=== PATIENT | male | born 1940 | race Caucasian/White ===

== ENCOUNTER 2016-11-08 06:37 | Inpatient (IN) | payer MEDICARE, BC ==
[2016-11-08] MEDS ORDERED: IPRATROPIUM-ALBUTEROL 3 ML NEB INHALATION STA (06:46)
[2016-11-08] MEDS ORDERED: ACETAMINOPHEN TAB 500 MG TAB PO STA (06:54)
[2016-11-08] MEDS ORDERED: SODIUM CHLORIDE 0.9% 1,000 ML IV STA ×2 (06:54→09:02)
--- NOTE | 2016-11-08 06:58 | ED ---
General Adult HPI - General Source: patient, EMS, RN notes reviewed Mode of arrival: EMS Limitations: no limitations <Mayank Burrows - Last Filed: 11/08/16 07:27> <Theodore Johnson - Last Filed: 11/08/16 09:44> - General Chief complaint: Shortness of Breath Stated complaint: PEYTON Time Seen by Provider: 11/08/16 06:51 - History of Present Illness Initial comments: Patient is a pleasant 76-year-old male presenting to the emergency department with difficulty in breathing. Onset of symptoms was a day or 2 ago. Patient is dyspneic and only speaks in one word answers. Patient states he does have a history of similar symptoms previously associated with COPD. Patient is unclear if he has had fever. Patient does admit to having cough. (Mayank Burrows) - Related Data Allergies Allergy/AdvReac Type Severity Reaction Status Date / Time No Known Allergies Allergy Verified 11/08/16 07:40 Review of Systems ROS Other: All systems not noted in ROS Statement are negative. Constitutional: Reports: fever Eyes: Denies: eye pain ENT: Denies: ear pain Respiratory: Reports: cough, dyspnea Cardiovascular: Denies: chest pain Endocrine: Reports: fatigue Gastrointestinal: Denies: abdominal pain Genitourinary: Denies: dysuria Musculoskeletal: Denies: back pain Skin: Denies: rash Neurological: Denies: weakness <Mayank Burrows - Last Filed: 11/08/16 07:27> ROS Other: All systems not noted in ROS Statement are negative. <Theodore Johnson - Last Filed: 11/08/16 09:44> ROS Statement: Those systems with pertinent positive or pertinent negative responses have been documented in the HPI. Past Medical History Past Medical History: COPD, Hypertension History of Any Multi-Drug Resistant Organisms: None Reported Additional Past Surgical History / Comment(s): abdominal sx Past Psychological History: No Psychological Hx Reported Smoking Status: Former smoker Past Alcohol Use History: None Reported Past Drug Use History: None Reported <Mayank Burrows - Last Filed: 11/08/16 07:27> General Exam Limitations: no limitations General appearance: alert Head exam: Present: atraumatic Eye exam: Present: normal appearance, PERRL ENT exam: Present: mucous membranes dry Neck exam: Present: normal inspection Respiratory exam: Present: respiratory distress, wheezes, decreased breath sounds Cardiovascular Exam: Present: tachycardia GI/Abdominal exam: Present: soft. Absent: tenderness Extremities exam: Present: normal inspection. Absent: pedal edema, calf tenderness Neurological exam: Present: alert Psychiatric exam: Present: normal affect, normal mood Skin exam: Present: normal color <Mayank Burrows - Last Filed: 11/08/16 07:27> Course <Mayank Burrows - Last Filed: 11/08/16 07:27> <Theodore Johnson - Last Filed: 11/08/16 09:44> Vital Signs 11/08/16 11/08/16 11/08/16 06:38 06:45 06:49 Temperature 100.7 F H Pulse Rate 118 H 114 H Respiratory 26 H 35 H Rate Blood Pressure 124/90 O2 Sat by Pulse 91 L Oximetry 11/08/16 11/08/16 11/08/16 06:52 07:06 08:03 Temperature Pulse Rate 122 H 120 H 119 H Respiratory 20 20 Rate Blood Pressure 153/65 116/55 O2 Sat by Pulse 94 L 90 L Oximetry 11/08/16 11/08/16 11/08/16 08:24 08:36 09:03 Temperature 98.6 F 97.9 F Pulse Rate 115 H 110 H 107 H Respiratory 20 20 24 Rate Blood Pressure 82/44 80/43 90/54 O2 Sat by Pulse 91 L 91 L 93 L Oximetry 11/08/16 09:15 Temperature Pulse Rate 100 Respiratory 20 Rate Blood Pressure 94/53 O2 Sat by Pulse 93 L Oximetry - Reevaluation(s) Reevaluation #1: 11/08/16 07:[address] Johnson (Mayank Burrows) Reevaluation #2: 11/08/16 09:40 Reevaluation patient reveals she is feeling improved however his blood pressure did decline. He did require fluid resuscitation. (Theodore Johnson) EKG Findings - EKG Comments: EKG Findings:: Sinus tachycardia 121. NE 12. QRS 138. QT 364. QTC 516. Right axis. Nonspecific intraventricular block. ST depression in V6. <Mayank Burrows - Last Filed: 11/08/16 07:27> Medical Decision Making - Lab Data Result diagrams: 11/08/16 06:40 <Mayank Burrows - Last Filed: 11/08/16 07:27> - Lab Data Result diagrams: 11/08/16 06:40 11/08/16 06:40 - Radiology Data Radiology results: report reviewed (I did review the imaging and reports are is evidence of pulmonary venous congestion also left lower lobe atelectasis versus pneumonia.), image reviewed <Theodore Johnson - Last Filed: 11/08/16 09:44> - Medical Decision Making I did discuss case with patient and his . Also with Dr. Haider. Patient will be admitted consultation by Dr. Cat and cardiology. The patient does have an elevated lactic acid are this is on the basis of viral depletion as well as renal insufficiency. Aggressive fluid administration is given with caution. (Theodore Johnson) - Lab Data Lab Results 11/08/16 11/08/16 11/08/16 Range/Units 06:40 06:40 06:40 WBC 7.9 (3.8-10.6) k/uL RBC 3.64 L (4.30-5.90) m/uL Hgb 10.4 L (13.0-17.5) gm/dL Hct 32.1 L (39.0-53.0) % MCV 88.2 D (80.0-100.0) fL MCH 28.7 (25.0-35.0) pg MCHC 32.6 (31.0-37.0) g/dL RDW 16.7 H (11.5-15.5) % Plt Count 243 (150-450) k/uL Neutrophils % (Manual) 74 % Lymphocytes % (Manual) 18 % Monocytes % (Manual) 6 % Eosinophils % (Manual) 2 % Neutrophils # (Manual) 5.85 (1.3-7.7) k/uL Lymphocytes # (Manual) 1.42 (1.0-4.8) k/uL Monocytes # (Manual) 0.47 (0-1.0) k/uL Eosinophils # (Manual) 0.16 (0-0.7) k/uL Nucleated RBCs 0 (0-0) /100 WBC Manual Slide Review Performed Hypochromasia Moderate Poikilocytosis Slight Anisocytosis Slight PT (9.0-12.0) sec INR (<1.2) APTT (22.0-30.0) sec Sodium 140 (137-145) mmol/L Potassium 4.4 (3.5-5.1) mmol/L Chloride 102 (98-107) mmol/L Carbon Dioxide 27 (22-30) mmol/L Anion Gap 11 mmol/L BUN 34 H (9-20) mg/dL Creatinine 2.38 H (0.66-1.25) mg/dL Est GFR (MDRD) Af Amer 33 (>60 ml/min/1.73 sqM) Est GFR (MDRD) Non-Af 27 (>60 ml/min/1.73 sqM) Glucose 116 H (74-99) mg/dL Plasma Lactic Acid Sriram (0.7-2.0) mmol/L Calcium 9.4 (8.4-10.2) mg/dL Total Bilirubin 0.6 (0.2-1.3) mg/dL AST 17 (17-59) U/L ALT 27 (21-72) U/L Alkaline Phosphatase 77 (38-126) U/L Total Creatine Kinase 26 L (55-170) U/L CK-MB (CK-2) 0.4 (0.0-2.4) ng/mL CK-MB (CK-2) Rel Index 1.5 Troponin I 0.045 H* (0.000-0.034) ng/mL NT-Pro-B Natriuret Pep pg/mL Total Protein 6.4 (6.3-8.2) g/dL Albumin 3.3 L (3.5-5.0) g/dL 11/08/16 11/08/16 11/08/16 Range/Units 06:40 06:40 06:40 WBC (3.8-10.6) k/uL RBC (4.30-5.90) m/uL Hgb (13.0-17.5) gm/dL Hct (39.0-53.0) % MCV (80.0-100.0) fL MCH (25.0-35.0) pg MCHC (31.0-37.0) g/dL RDW (11.5-15.5) % Plt Count (150-450) k/uL Neutrophils % (Manual) % Lymphocytes % (Manual) % Monocytes % (Manual) % Eosinophils % (Manual) % Neutrophils # (Manual) (1.3-7.7) k/uL Lymphocytes # (Manual) (1.0-4.8) k/uL Monocytes # (Manual) (0-1.0) k/uL Eosinophils # (Manual) (0-0.7) k/uL Nucleated RBCs (0-0) /100 WBC Manual Slide Review Hypochromasia Poikilocytosis Anisocytosis PT 10.6 (9.0-12.0) sec INR 1.0 (<1.2) APTT 25.4 (22.0-30.0) sec Sodium (137-145) mmol/L Potassium (3.5-5.1) mmol/L Chloride (98-107) mmol/L Carbon Dioxide (22-30) mmol/L Anion Gap mmol/L BUN (9-20) mg/dL Creatinine (0.66-1.25) mg/dL Est GFR (MDRD) Af Amer (>60 ml/min/1.73 sqM) Est GFR (MDRD) Non-Af (>60 ml/min/1.73 sqM) Glucose (74-99) mg/dL Plasma Lactic Acid Sriram 2.3 H* (0.7-2.0) mmol/L Calcium (8.4-10.2) mg/dL Total Bilirubin (0.2-1.3) mg/dL AST (17-59) U/L ALT (21-72) U/L Alkaline Phosphatase (38-126) U/L Total Creatine Kinase (55-170) U/L CK-MB (CK-2) (0.0-2.4) ng/mL CK-MB (CK-2) Rel Index Troponin I (0.000-0.034) ng/mL NT-Pro-B Natriuret Pep 3480 pg/mL Total Protein (6.3-8.2) g/dL Albumin (3.5-5.0) g/dL Critical Care Time <Mayank Burrows - Last Filed: 11/08/16 07:27> Critical Care Time: Yes <Theodore Johnson - Last Filed: 11/08/16 09:44> Critical Care Time: 31 minutes of critical care time which includes initial signoff from Dr. Burrows. Reevaluation patient several occasions. Discussion with the patient family regarding findings review the x-rays and labs. Admission orders and documentation of the above. (Theodore Johnson) Disposition <Mayank Burrows - Last Filed: 11/08/16 07:27> <Theodore Johnson - Last Filed: 11/08/16 09:44> Clinical Impression: Left lower lobe pneumonia, Congestive heart failure, COPD with exacerbation, Renal failure syndrome, Hypotensive episode Disposition: ADMITTED IP TO THIS [facility] Condition: Serious Referrals: Jayme Haider MD [Primary Care Provider] - 1-2 days
[2016-11-08 07:17] LABS: Calcium 9.4 mg/dL (8.4-10.2); Potassium 4.4 mmol/L (3.5-5.1); Total Bilirubin 0.6 mg/dL (0.2-1.3); Total Protein 6.4 g/dL (6.3-8.2)
[2016-11-08 07:21] LABS: Partial Thromboplastin Time 25.4 sec (22.0-30.0); Prothrombin Time 10.6 sec (9.0-12.0)
[2016-11-08 07:30] LABS: Anisocytosis Slight; Aty Lym Flag Slight; CH 27.5; CHCM 31.3; HCT 32.1 % (39.0-53.0); HDW 3.56; HGB 10.4 gm/dL (13.0-17.5); Hypochromasia Moderate; MCH 28.7 pg (25.0-35.0); MCHC 32.6 g/dL (31.0-37.0); Mean Platelet Volume 7.6; Poikilocytosis Slight; RBC 3.64 m/uL (4.30-5.90); RDW 16.7 % (11.5-15.5); WBC 7.9 k/uL (3.8-10.6); WBC (Perox) 7.76
[2016-11-08 07:32] LABS: MCV 88.2 fL (80.0-100.0)
[2016-11-08 07:41] LABS: Add Differential Manual Differential
[2016-11-08 07:42] LABS: Creatine Kinase MB 0.4 ng/mL (0.0-2.4)
[2016-11-08 07:44] LABS: Manual Review Performed; Nucleated Red Blood Cells 0 /100 WBC (0-0); Total Cells Counted 100
[2016-11-08 07:46] LABS: Troponin I 0.045 ng/mL (0.000-0.034)
--- NOTE | 2016-11-08 07:59 | XR ---
EXAMINATION TYPE: XR chest 1V portable DATE OF EXAM: 11/08/2016 COMPARISON: NONE HISTORY: Shortness of breath TECHNIQUE: Single frontal view of the chest is obtained. FINDINGS: Patient is rotated. Heart may be enlarged. Interstitium is increased. No pneumothorax or s izable pleural effusion. There are overlying cardiac leads. Difficult to exclude retrocardiac density . IMPRESSION: Findings likely represent pulmonary venous hypertension and interstitial edema. There ma y be left lower lobe atelectasis versus edema or pneumonia, effusion is not excluded. Follow-up recom mended.
[2016-11-08] MEDS ORDERED: NITROGLYCERIN OINT 1 INCH/GM PACKET TOPICAL STA (08:07)
[2016-11-08] MEDS ORDERED: FUROSEMIDE 10 MG/ML 4 ML VIAL IV STA (08:07)
[2016-11-08] MEDS ORDERED: PIPERACILLIN-TAZOBACTAM 3.375 GM in DEXTROSE/WATER 1 50ML.BAG IVPB STA (08:07)
[2016-11-08] MEDS ORDERED: LEVOFLOXACIN 750MG-D5W PMX 750 MG in DEXTROSE/WATER 1 150ML.BAG IVPB STA (09:44)
[2016-11-08] MEDS ORDERED: PNEUMONIA PROTOCOL UTILIZED 1 EACH MISC PO PRN (09:44)
[2016-11-08 13:42] VITALS: BMI 21.7
--- NOTE | 2016-11-08 14:17 | P.HPIM ---
History of Present Illness H&P Date: 11/08/16 Chief Complaint: Shortness of breath This is a 76 year old male patient who presented to the emergency room on November 08, 2016 with a chief complaint of shortness of breath for two days. The patient also complained of a cough. The patient is hard of hearing. The is at the bedside during evaluation and was very helpful in describing the patients condition over the past few days and also his medical history. In the emergency room, a chest xray revealed pulmonary venous congestion and left lower lobe atelectasis versus pneumonia. An EKG was performed which showed sinus tachycardia with a rate in the 120s. Initially the patient presented hypertensive, but the patient's blood pressure did decrease and the patient received 2L in fluid boluses. He also received 40mg IVP lasix x1. His lactic acid was elevated at 2.3 He was febrile in the ER with a temperature of 100.7. Blood cultures were drawn. His WBC was normal at 7.9. 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 He lives with his spouse and uses a cane to ambulate. He also wears oxygen 2L NC around the clock at home. The patient was admitted to the hospital under the care of Dr. Haider. Consults were placed to Dr. Cat and Dr. Burns. Review of Systems GENERAL: Positive for fever. Patient denies chills, weight gain, or weight loss. RESPIRATORY: Positive for dyspnea and cough. Denies sputum production or hemoptysis. CARDIOVASCULAR: Denies chest pain, pressure, palpitations, claudication, or arrhythmias. GI: Denies abdominal pain, diarrhea, incontinence, heartburn, nausea, constipation, or blood in the stool. : Denies urinary frequency, burning, dysuria, or cloudy urine. Denies blood in the urine. MUSCULOSKELETAL: Denies pain or tenderness. Denies cramps, swelling, or decreased range of motion. Past Medical History Past Medical History: Chest Pain / Angina, COPD, CVA/TIA, Dementia, Hyperlipidemia, Hypertension, Osteoarthritis (OA), Pneumonia, Prostate Disorder , Renal Disease, Skin Disorder, Syncope Additional Past Medical History / Comment(s): Benign L lung mass removed surgically, psoriasis-takes methotrexate, early dementia, 2014 "brain bleed" with L sided weakness since resolved-was intubated and had a feeding tube, possible seizure in 2016, kidney "problems" but labwork is improving, back pain on occasion, past fractures L wrist and R hand fingers. History of Any Multi-Drug Resistant Organisms: None Reported Past Surgical History: Heart Catheterization, Hernia Repair, Tonsillectomy Additional Past Surgical History / Comment(s): Drainage tube for brain bleed- removed, L bening lung mass removed, R inguinal hernia removed, colonoscopy, cyst removed from tailbone. Past Anesthesia/Blood Transfusion Reactions: No Reported Reaction Smoking Status: Former smoker - Past Family History Father Family Medical History: Cancer, Coronary Artery Disease (CAD) Additional Family Medical History / Comment(s): Father of cancer per his autopsy-unknown primary. He had CAD-CABG and was a drinker with liver dx. Mother Additional Family Medical History / Comment(s): Mother of a brain aneurysm at the age of 67 or 68yrs. Medications and Allergies Home Medications Medication Instructions Recorded Confirmed Type Acetaminophen-Codeine 300-30mg 1 - 2 tab PO Q6H PRN 11/08/16 11/08/16 History [Tylenol #3] Aspirin EC [Ecotrin Low Dose] 81 mg PO HS 11/08/16 11/08/16 History Folic Acid 1 mg PO DAILY 11/08/16 11/08/16 History Furosemide [Lasix] 40 mg PO DAILY 11/08/16 11/08/16 History Methotrexate Sodium [Methotrexate] 7.5 mg PO SA 11/08/16 11/08/16 History Tamsulosin [Flomax] 0.4 mg PO DAILY 11/08/16 11/08/16 History amLODIPine [Norvasc] 10 mg PO DAILY 11/08/16 11/08/16 History Allergies Allergy/AdvReac Type Severity Reaction Status Date / Time No Known Allergies Allergy Verified 11/08/16 07:40 Physical Exam Vitals: Vital Signs Temp Pulse Resp BP Pulse Ox 11/08/16 10:15 98.7 F 97 18 95/51 93 L 11/08/16 09:59 97 18 97/54 95 11/08/16 09:45 97.8 F 98 20 103/54 94 L 11/08/16 09:15 100 20 94/53 93 L 11/08/16 09:03 97.9 F 107 H 24 90/54 93 L 11/08/16 08:36 110 H 20 80/43 91 L 11/08/16 08:24 98.6 F 115 H 20 82/44 91 L 11/08/16 08:03 119 H 20 116/55 90 L 11/08/16 07:06 120 H 11/08/16 06:52 122 H 20 153/65 94 L 11/08/16 06:49 114 H 11/08/16 06:45 35 H 11/08/16 06:38 100.7 F H 118 H 26 H 124/90 91 L Intake and Output 11/07/16 11/08/16 11/08/16 22:59 06:59 14:59 Intake Total 2000 Output Total 250 Balance 1750 Intake: Amount of Fluid Infused ( 2000 ml) Output: Urine 250 Other: # Voids 0 Weight 72.575 kg GENERAL: Alert and oriented. Appears in no acute distress. Pleasant. RESPIRATORY: Lungs diminished bilaterally. No use of accessory muscles. Patient maintaining oxygen saturation greater than 92% on 4L NC. CARDIOVASCULAR: Rate and rhythm regular. S1 and S2 noted. No JVD noted. EXTREMITIES: +1 lower extremity edema. Palpable pedal pulses +2. ABDOMEN: No distention noted. Abdomen soft and round. Normal active bowel sounds auscultated 4 quadrants. No pain or tenderness noted upon palpation. Results CBC & Chem 7: 11/09/16 05:41 11/09/16 05:41 Labs: Abnormal Lab Results - Last 24 Hours (Table) 11/08/16 11/08/16 11/08/16 Range/Units 06:40 06:40 06:40 RBC 3.64 L (4.30-5.90) m/uL Hgb 10.4 L (13.0-17.5) gm/dL Hct 32.1 L (39.0-53.0) % RDW 16.7 H (11.5-15.5) % BUN 34 H (9-20) mg/dL Creatinine 2.38 H (0.66-1.25) mg/dL Glucose 116 H (74-99) mg/dL Plasma Lactic Acid Sriram (0.7-2.0) mmol/L Total Creatine Kinase 26 L (55-170) U/L Troponin I 0.045 H* (0.000-0.034) ng/mL Albumin 3.3 L (3.5-5.0) g/dL 11/08/16 11/08/16 Range/Units 06:40 10:46 RBC (4.30-5.90) m/uL Hgb (13.0-17.5) gm/dL Hct (39.0-53.0) % RDW (11.5-15.5) % BUN (9-20) mg/dL Creatinine (0.66-1.25) mg/dL Glucose (74-99) mg/dL Plasma Lactic Acid Sriram 2.3 H* 2.8 H* (0.7-2.0) mmol/L Total Creatine Kinase (55-170) U/L Troponin I (0.000-0.034) ng/mL Albumin (3.5-5.0) g/dL Thrombosis Risk Factor Assmnt - Choose All That Apply Any of the Below Risk Factors Present?: Yes Each Factor Represents 1 point: Abnormal pulmonary function (COPD), Heart failure (<1month), Serious lung disease incl. pneumonia (< 1month) Each Risk Factor Represents 2 Points: Age 61-74 years Other congenital or acquired thrombophilia - If yes, enter type in comment: No Thrombosis Risk Factor Assessment Total Risk Factor Score: 5 Thrombosis Risk Factor Assessment Level: High Risk Assessment and Plan Plan: ASSESSMENT: -Pneumonia, present on admission, CXR reveals left lower lobe atelectasis versus pneumonia -Acute exacerbation of COPD, present on admission -Dyspnea, present on admission, related to pneumonia and CHF exacerbation -Exacerbation of congestive heart failure, present on admission, type unknown -Febrile, present on admission, resolved -Hypertensive urgency, present on admission, resolved -Hypotension, improving -Elevated lactic acid, present on admission, likely due to acute kidney injury and vascular depletion -Chronic hypoxic respiratory failure: supplemental oxygen dependent - patient wears 2L NC at home -Tachycardia, present on admission, resolving -Acute Kidney Injury with elevated creatinine of 2.38, present on admission, baseline unknown -Tachycardia, febrile, hypotension, present on admission, meets SIRS criteria- suspect early sepsis. Etiology unknown. blood cultures pending. PLAN: -Continue zosyn and levaquin -Awaiting blood culture results -Resume home meds -Continue lasix 40mg BID -GI prophylaxis: Protonix 40 mg IV daily -DVT prophylaxis: Heparin 5000 units subcu every 8 hours -Pulmonary on consult: Appreciate recommendations and input -Cardiology on consult: Appreciate recommendations and input -Await results of echo -Continue IV steroids: 60mg Q6 hours -Continue breathing treatments -Monitor labs -Monitor vital signs and address as appropriate The above impression and plan of care have been discussed and directed by signing physician. Anay Lara, nurse practitioner, acting as scribe for signing physician.
--- NOTE | 2016-11-08 16:47 | CONS ---
CONSULTATION CHIEF COMPLAINT: Shortness of breath. This is a 76-year-old gentleman with history of COPD and hypertension who comes in with difficulty in breathing and also has some cough. He is a very poor historian, and I am not quite able to understand the exact symptomatology that brought him in. ALLERGIES: NO KNOWN DRUG ALLERGIES. PAST MEDICAL HISTORY: Significant for COPD and hypertension. MEDICATIONS: Medications at home include: 1. Norvasc 10 daily. 2. Flomax. 3. Methotrexate. 4. Lasix. 5. Folic acid. 6. Aspirin. FAMILY HISTORY: Negative for premature coronary artery disease. SOCIAL HISTORY: Negative for current smoking, ETOH abuse or drug abuse. REVIEW OF SYSTEMS: HEENT is unremarkable. CARDIAC: As described above. RESPIRATORY: As described above. GI: Negative. GENITOURINARY: Negative. ALLERGY/IMMUNOLOGY: Negative. SKIN: Negative. MUSCULOSKELETAL: Significant for arthritis. PSYCHOSOCIAL: Negative. ENDOCRINE: Negative. DERMATOLOGICAL: Negative. CONSTITUTIONAL: Significant for not feeling well. The rest of the system review is not relevant. PHYSICAL EXAM: Comfortable at rest. Afebrile. Heart rate is 97 beats per minute, blood pressure 90/50, respiratory rate is 18. Chest exam reveals diminished air entry at the bases. Heart exam reveals first and second heart sounds. He has a systolic murmur at the left lower sternal border. Abdomen is soft. Examination of extremities reveals bilateral 1+ pitting edema. LABS: Hemoglobin of 10.4. Lactic acid is elevated. BNP is 3480. Troponin is elevated at 0.045. EKG shows sinus rhythm with left bundle branch block. ASSESSMENT: 1. Acute onset congestive heart failure. 2. Mild troponin elevation of unclear clinical significance. 3. Chronic renal failure. 4. History of chronic obstructive pulmonary disease. PLAN: I am going to obtain a 2D echo to document his LV function. His troponin elevation is probably related to underlying renal failure. I will obtain one more set of troponin. Continue the Lasix that he is on. The patient is currently being treated with multiple antibiotics, probably for possible pneumonia. MMODL / IJN: [id number] /
[2016-11-08] MEDS: SODIUM CHLORIDE 0.9% 1,000 ML IV SCH ×2 (18:45→18:50)
[2016-11-08] MEDS: methylPREDNISolone SOD SUCCI 125 MG/2 ML VIAL IV SCH ×3 (18:45→23:05)
[2016-11-08] MEDS: HEPARIN SODIUM,PORCINE 5,000 UNIT/ML 1 ML VIAL SQ SCH ×2 (18:49→23:05)
[2016-11-08] MEDS: IPRATROPIUM-ALBUTEROL 3 ML NEB INHALATION PRN (19:18)
[2016-11-08] MEDS: ASPIRIN 81 MG PO SCH (21:27)
[2016-11-08] MEDS: PIPERACILLIN-TAZOBACTAM 3.375 GM in DEXTROSE/WATER 1 50ML.BAG IVPB SCH ×2 (21:27→23:04)
[2016-11-08 21:59] LABS: Glucose,Whole Blood 141 mg/dL (75-99)
[2016-11-09 01:39] LABS: Glucose,Whole Blood 139 mg/dL (75-99)
[2016-11-09] MEDS: methylPREDNISolone SOD SUCCI 125 MG/2 ML VIAL IV SCH ×4 (06:03→23:47)
[2016-11-09] MEDS: SODIUM CHLORIDE 0.9% 1,000 ML IV SCH ×2 (06:04→17:29)
[2016-11-09 06:09] LABS: Anisocytosis Slight; Basophils % (A) 1 %; CH 28.5; CHCM 32.4; Eosinophils % (A) 0 %; HCT 32.3 % (39.0-53.0); HDW 3.54; HGB 10.3 gm/dL (13.0-17.5); Hypochromasia Slight; Luc # (Auto) 0.14; Luc % (Auto) 3; Lymphocytes # (A) 0.7 k/uL (1.0-4.8); Lymphocytes % (A) 15 %; MCH 28.1 pg (25.0-35.0); MCHC 31.8 g/dL (31.0-37.0); MCV 88.2 fL (80.0-100.0); Mean Platelet Volume 7.8; Monocytes # (A) 0.1 k/uL (0-1.0); Monocytes % (A) 2 %; Neutrophils # (A) 3.4 k/uL (1.3-7.7); Neutrophils % (A) 79 %; Poikilocytosis Slight; RBC 3.66 m/uL (4.30-5.90); RDW 17.6 % (11.5-15.5); WBC 4.3 k/uL (3.8-10.6); WBC (Perox) 4.74
[2016-11-09 06:10] LABS: Calcium 9.4 mg/dL (8.4-10.2); Potassium 4.2 mmol/L (3.5-5.1); Total Bilirubin 0.5 mg/dL (0.2-1.3); Total Protein 5.8 g/dL (6.3-8.2)
[2016-11-09] MEDS: INSULIN LISPRO (humaLOG) 300 UNIT/3 ML VIAL SQ SCH ×4 (06:18→22:05)
[2016-11-09 06:33] LABS: Glucose,Whole Blood 127 mg/dL (75-99)
[2016-11-09 08:59] LABS: Hemoglobin A1C 5.8 % (4.2-6.1)
[2016-11-09] MEDS ORDERED: LEVOFLOXACIN 750 MG TAB PO SCH ×2 (09:00→17:00)
[2016-11-09] MEDS ORDERED: PANTOPRAZOLE 40 MG/10 ML VIAL IVP SCH (09:00)
[2016-11-09] MEDS ORDERED: amLODIPine 10 MG TAB PO SCH (09:00)
[2016-11-09] MEDS: IPRATROPIUM-ALBUTEROL 3 ML NEB INHALATION PRN ×4 (09:16→21:03)
[2016-11-09] MEDS: PIPERACILLIN-TAZOBACTAM 3.375 GM in DEXTROSE/WATER 1 50ML.BAG IVPB SCH ×3 (09:33→23:40)
[2016-11-09] MEDS: HEPARIN SODIUM,PORCINE 5,000 UNIT/ML 1 ML VIAL SQ SCH ×3 (09:34→23:47)
[2016-11-09] MEDS: FOLIC ACID 1 MG TAB PO SCH (09:38)
[2016-11-09] MEDS: TAMSULOSIN 0.4 MG CAP.ER.24H PO SCH (09:39)
[2016-11-09] MEDS: FUROSEMIDE 40 MG TAB PO SCH (09:39)
--- NOTE | 2016-11-09 10:00 | ECHOF ---
Referral Reason:Shortness of breath MEASUREMENTS -------- HEIGHT: 182.9 cm WEIGHT: 72.6 kg BP: 95/51 RVIDd: 3.6 cm (< 3.3) IVSd: 1.4 cm (0.6 - 1.1) LVIDd: 4.4 cm (3.9 - 5.3) LVPWd: 1.3 cm (0.6 - 1.1) IVSs: 1.8 cm LVIDs: 3.8 cm LVPWs: 1.8 cm LA Diam: 4.2 cm (2.7 - 3.8) LAESV Index (A-L): 27.47 ml/m Ao Diam: 3.5 cm (2.0 - 3.7) MV EXCURSION: 13.536 mm (> 18.000) MV EF SLOPE: 107 mm/s (70 - 150) EPSS: 0.9 cm MV E Luis: 1.14 m/s MV DecT: 135 ms MV A Luis: 0.38 m/s MV E/A Ratio: 3.01 AV maxP.73 mmHg AV meanP.45 mmHg FINDINGS -------- Sinus rhythm. This was a technically good study. The left ventricular size is normal. Overall left ventricular systolic function is mild-moderately impaired with, an EF between 40 - 45 %. Mid inferoseptal LV wall motion is hypokinetic. The right ventricle is mildly enlarged. Normal LA size by volume 22+/-6 ml/m2. The right atrium is normal in size. There is moderate aortic valve sclerosis. There is mild aortic stenosis present. Peak/mean gradient across the Aortic Valve is 18.73mmHg / 9.45mmHg. The mitral valve leaflets are mildly thickened. Mild mitral annular calcification present. The tricuspid valve appears structurally normal. The pulmonic valve was not well visualized. 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 IVC Not well visulized. There is a moderate, generalized pericardial effusion present. CONCLUSIONS -------- 1. Sinus rhythm. 2. There is mild aortic stenosis present. 3. Peak/mean gradient across the Aortic Valve is 18.73mmHg / 9.45mmHg. 4. The mitral valve leaflets are mildly thickened. 5. Mild mitral annular calcification present. 6. The tricuspid valve appears structurally normal. 7. The pulmonic valve was not well visualized. 8. 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 9. IVC Not well visulized. 10. There is a moderate, generalized pericardial effusion present. 11. This was a technically good study. 12. The left ventricular size is normal. 13. Overall left ventricular systolic function is mild-moderately impaired with, an EF between 40 - 45 %. 14. Mid inferoseptal LV wall motion is hypokinetic. 15. The right ventricle is mildly enlarged. 16. Normal LA size by volume 22+/-6 ml/m2. 17. The right atrium is normal in size. 18. There is moderate aortic valve sclerosis. ASSOCIATE TEACHER: Kari Tompkins RDCS
--- NOTE | 2016-11-09 11:35 | P.PN ---
Subjective Principal diagnosis: 76-year-old male seen examined this morning by Dr. Haider. The patient was admitted for pneumonia, CHF, and COPD. The patient had an echocardiogram completed which showed an EF of 40-45%. Preliminary results of blood cultures revealed gram-positive cocci in groups. Dr Lynn, infectious disease, consulted at the request of Dr. Haider Objective - Vital Signs Vital signs: Vital Signs Temp 97.7 F 11/09/16 04:00 Pulse 92 11/09/16 09:31 Resp 18 11/09/16 04:00 BP 121/68 11/09/16 04:00 Pulse Ox 93 L 11/09/16 04:00 Intake & Output 11/08/16 11/09/16 11/09/16 18:59 06:59 18:59 Intake Total 2190 204 120 Output Total 650 Balance 1540 204 120 Weight 72.575 kg 74 kg Intake: IV 204 Piperacillin-Tazobactam 3 50 .375 gm In Dextrose/Water 1 50ml.bag @ 12.5 mls/hr IVPB ONCE STA Rx#: [id number] Sodium Chloride 0.9% 1, 154 000 ml @ 100 mls/hr IV . Q10H [facility] Rx#:[id number] Amount of Fluid Infused ( 2000 ml) Oral 190 120 Output: Urine 650 Other: Voiding Method Urinal Urinal Diaper Diaper Incontinent # Voids 1 2 1 - Exam GENERAL: Alert and oriented. Appears in no acute distress. Pleasant. RESPIRATORY: Lungs diminished bilaterally. No use of accessory muscles. Patient maintaining oxygen saturation greater than 92% on 4L NC. CARDIOVASCULAR: Rate and rhythm regular. Systolic murmur auscultated at left sternal border. S1 and S2 noted. No JVD noted. EXTREMITIES: +1 lower extremity edema. Palpable pedal pulses +2. ABDOMEN: No distention noted. Abdomen soft and round. Normal active bowel sounds auscultated 4 quadrants. No pain or tenderness noted upon palpation. - Labs CBC & Chem 7: 11/09/16 05:41 11/09/16 05:41 Labs: Abnormal Lab Results - Last 24 Hours (Table) 11/08/16 11/08/16 11/09/16 Range/Units 12:40 21:39 01:19 RBC (4.30-5.90) m/uL Hgb (13.0-17.5) gm/dL Hct (39.0-53.0) % RDW (11.5-15.5) % Lymphocytes # (1.0-4.8) k/uL BUN (9-20) mg/dL Creatinine (0.66-1.25) mg/dL Glucose (74-99) mg/dL POC Glucose (mg/dL) 141 H 139 H (75-99) mg/dL Troponin I 0.038 H* (0.000-0.034) ng/mL Total Protein (6.3-8.2) g/dL Albumin (3.5-5.0) g/dL 11/09/16 11/09/16 11/09/16 Range/Units 05:41 05:41 06:15 RBC 3.66 L (4.30-5.90) m/uL Hgb 10.3 L (13.0-17.5) gm/dL Hct 32.3 L (39.0-53.0) % RDW 17.6 H (11.5-15.5) % Lymphocytes # 0.7 L (1.0-4.8) k/uL BUN 34 H (9-20) mg/dL Creatinine 2.30 H (0.66-1.25) mg/dL Glucose 132 H (74-99) mg/dL POC Glucose (mg/dL) 127 H (75-99) mg/dL Troponin I (0.000-0.034) ng/mL Total Protein 5.8 L (6.3-8.2) g/dL Albumin 2.9 L (3.5-5.0) g/dL Microbiology - Last 24 Hours (Table) 11/08/16 08:17 Blood Culture - Preliminary Blood No Growth after 24 hours 11/08/16 06:40 Blood Culture Gram Stain - Preliminary Blood 11/08/16 06:40 Blood Culture - Final Blood Assessment and Plan Plan: ASSESSMENT: -Pneumonia, present on admission, CXR reveals left lower lobe atelectasis versus pneumonia -Acute exacerbation of COPD, present on admission -Dyspnea, present on admission, related to pneumonia and systolic CHF exacerbation -Exacerbation of systolic congestive heart failure, present on admission -Hypertensive urgency, present on admission, resolved -Elevated lactic acid, present on admission, likely due to acute kidney injury and vascular depletion, resolved -Chronic hypoxic respiratory failure: supplemental oxygen dependent - patient wears 2L NC at home -Tachycardia, present on admission, resolving -Acute Kidney Injury with elevated creatinine of 2.38 on admission, baseline unknown -Tachycardia, febrile, hypotension, present on admission, meets SIRS criteria- suspect early sepsis. Etiology unknown. Preliminary blood cultures indicate gram positive cocci in groups. PLAN: -Continue zosyn and levaquin -Await final blood culture results -Per Dr. Haider, consult infectious disease, Dr. Lynn -Continue lasix 40mg BID -GI prophylaxis: Protonix 40 mg IV daily -DVT prophylaxis: Heparin 5000 units subcu every 8 hours -Pulmonary on consult: Appreciate recommendations and input -Cardiology on consult: Appreciate recommendations and input -Continue IV steroids: 60mg Q6 hours -Continue breathing treatments -Monitor labs -Monitor vital signs and address as appropriate The above impression and plan of care have been discussed and directed by signing physician. Anay Lara, nurse practitioner, acting as scribe for signing physician.
[2016-11-09] MEDS ORDERED: LEVOFLOXACIN 500MG-D5W PMX 500 MG in DEXTROSE/WATER 1 100ML.BAG IVPB SCH (12:00)
--- NOTE | 2016-11-09 14:39 | P.PN ---
Subjective Principal diagnosis: Pneumonia and congestive heart failure This is a 76-year-old patient with history of COPD, hyperlipidemia, hypertension , heart early dementia, who presented to the hospital with symptoms of shortness of breath with associated cough. Currently receiving treatment for pneumonia as well as congestive heart failure. Diminished this morning, patient was sitting up in the chair, alert and oriented times one. Mild troponin elevation was noted, not consistent with acute coronary syndrome, likely secondary to abnormal renal function. Echocardiogram with Doppler study was performed which revealed an ejection fraction of 40-45% with inferior septal hypokinesia. Blood pressure 118/60, heart rate in the 90s. Hemoglobin 10.3, platelet count 239, BUN 34, creatinine 2.3, potassium 4.2. Patient is currently on oral Lasix, IV antibiotics. Objective - Vital Signs Vital signs: Vital Signs Temp 96.9 F L 11/09/16 07:45 Pulse 96 11/09/16 13:10 Resp 18 11/09/16 07:45 BP 118/61 11/09/16 07:45 Pulse Ox 93 L 11/09/16 07:45 Intake & Output 11/08/16 11/09/16 11/09/16 18:59 06:59 18:59 Intake Total 2190 204 240 Output Total 650 Balance 1540 204 240 Weight 72.575 kg 74 kg Intake: IV 204 Piperacillin-Tazobactam 3 50 .375 gm In Dextrose/Water 1 50ml.bag @ 12.5 mls/hr IVPB ONCE STA Rx#: [id number] Sodium Chloride 0.9% 1, 154 000 ml @ 100 mls/hr IV . Q10H [facility] Rx#:[id number] Amount of Fluid Infused ( 2000 ml) Oral 190 240 Output: Urine 650 Other: Voiding Method Urinal Urinal Urinal Diaper Diaper Diaper Incontinent Incontinent # Voids 1 2 1 - Exam PHYSICAL EXAMINATION: HEENT: Head is atraumatic, normocephalic. Pupils equal, round. Neck is supple. There is no elevated jugular venous pressure. HEART EXAMINATION: S1 and S2 with systolic murmur is heard. CHEST EXAMINATION: His reveal diminished air entry to bilateral bases. ABDOMEN: Soft, nontender. Bowel sounds are heard. No organomegaly noted. EXTREMITIES:[ 2+ peripheral pulses with evidence of peripheral edema NEUROLOGIC patient is awake, alert and oriented -1. . - Labs CBC & Chem 7: 11/09/16 05:41 11/09/16 05:41 Labs: Abnormal Lab Results - Last 24 Hours (Table) 11/08/16 11/08/16 11/09/16 Range/Units 12:40 21:39 01:19 RBC (4.30-5.90) m/uL Hgb (13.0-17.5) gm/dL Hct (39.0-53.0) % RDW (11.5-15.5) % Lymphocytes # (1.0-4.8) k/uL BUN (9-20) mg/dL Creatinine (0.66-1.25) mg/dL Glucose (74-99) mg/dL POC Glucose (mg/dL) 141 H 139 H (75-99) mg/dL Troponin I 0.038 H* (0.000-0.034) ng/mL Total Protein (6.3-8.2) g/dL Albumin (3.5-5.0) g/dL 11/09/16 11/09/16 11/09/16 Range/Units 05:41 05:41 06:15 RBC 3.66 L (4.30-5.90) m/uL Hgb 10.3 L (13.0-17.5) gm/dL Hct 32.3 L (39.0-53.0) % RDW 17.6 H (11.5-15.5) % Lymphocytes # 0.7 L (1.0-4.8) k/uL BUN 34 H (9-20) mg/dL Creatinine 2.30 H (0.66-1.25) mg/dL Glucose 132 H (74-99) mg/dL POC Glucose (mg/dL) 127 H (75-99) mg/dL Troponin I (0.000-0.034) ng/mL Total Protein 5.8 L (6.3-8.2) g/dL Albumin 2.9 L (3.5-5.0) g/dL Microbiology - Last 24 Hours (Table) 11/08/16 06:40 Blood Culture Gram Stain - Preliminary Blood 11/08/16 08:17 Blood Culture - Preliminary Blood No Growth after 24 hours 11/08/16 06:40 Blood Culture - Final Blood Assessment and Plan (1) Diastolic CHF, acute on chronic Status: Acute (2) Elevated troponin Status: Acute (3) Chronic renal failure Status: Acute (4) COPD (chronic obstructive pulmonary disease) Status: Acute (5) Dementia Status: Acute (6) Left lower lobe pneumonia Status: Acute Plan: From cardiology's perspective, we will recommend to continue the patient on his current medications. DNP note has been reviewed, I agree with a documented findings and plan of care. Patient was seen and examined.
[2016-11-09] MEDS ORDERED: IV VANCOMYCIN PER PHARMACY 1 EACH MISC MISCELLANE PRN (15:25)
--- NOTE | 2016-11-09 15:45 | XR ---
EXAMINATION TYPE: XR chest 2V DATE OF EXAM: 11/09/2016 COMPARISON: 11/08/2016 TECHNIQUE: PA and lateral views submitted. HISTORY: Shortness of breath FINDINGS: Interstitial pattern seen with bilateral small effusion and left basilar consolidation. Atherosclerot ic change aorta. Hypertrophic and degenerative change of the spine. Hyperinflation suggests COPD. IMPRESSION: 1. Bilateral infiltrate and small effusion correlate for mild venous congestion.
[2016-11-09 15:54] LABS: Glucose,Whole Blood 264 mg/dL (75-99)
[2016-11-09] MEDS ORDERED: VANCOMYCIN 1,250 MG in SODIUM CHLORIDE 0.9% 250 ML IVPB SCH ×2 (16:00→22:00)
[2016-11-09 16:40] LABS: Glucose,Whole Blood 209 mg/dL (75-99)
[2016-11-09] MEDS: Acetaminophen-Codeine 300-30mg TAB PO PRN (20:31)
[2016-11-09] MEDS: ASPIRIN 81 MG PO SCH (20:32)
[2016-11-09 20:49] LABS: Glucose,Whole Blood 183 mg/dL (75-99)
[2016-11-10] MEDS: SODIUM CHLORIDE 0.9% 1,000 ML IV SCH ×2 (04:32→22:04)
[2016-11-10 06:23] LABS: Anisocytosis Slight; Basophils % (A) 0 %; CH 28.3; CHCM 31.9; Eosinophils % (A) 0 %; HDW 3.61; HGB 9.3 gm/dL (13.0-17.5); Hypochromasia Moderate; Luc # (Auto) 0.38; Luc % (Auto) 3; Lymphocytes # (A) 1.7 k/uL (1.0-4.8); Lymphocytes % (A) 15 %; MCH 27.7 pg (25.0-35.0); MCHC 31.1 g/dL (31.0-37.0); MCV 89.3 fL (80.0-100.0); Mean Platelet Volume 8.2; Monocytes # (A) 0.4 k/uL (0-1.0); Monocytes % (A) 4 %; Neutrophils # (A) 8.8 k/uL (1.3-7.7); Neutrophils % (A) 78 %; Poikilocytosis Slight; RBC 3.36 m/uL (4.30-5.90); RDW 17.8 % (11.5-15.5); WBC 11.3 k/uL (3.8-10.6); WBC (Perox) 11.48
[2016-11-10 06:40] LABS: Calcium 9.5 mg/dL (8.4-10.2); Potassium 4.2 mmol/L (3.5-5.1); Total Bilirubin 0.3 mg/dL (0.2-1.3); Total Protein 5.7 g/dL (6.3-8.2)
[2016-11-10] MEDS: INSULIN LISPRO (humaLOG) 300 UNIT/3 ML VIAL SQ SCH ×4 (06:43→22:03)
[2016-11-10] MEDS: methylPREDNISolone SOD SUCCI 125 MG/2 ML VIAL IV SCH ×2 (06:43→12:00)
[2016-11-10 06:44] LABS: Glucose,Whole Blood 137 mg/dL (75-99)
[2016-11-10] MEDS: PANTOPRAZOLE 40 MG TABLET PO SCH (06:44)
[2016-11-10] MEDS: TAMSULOSIN 0.4 MG CAP.ER.24H PO SCH (08:17)
[2016-11-10] MEDS: HEPARIN SODIUM,PORCINE 5,000 UNIT/ML 1 ML VIAL SQ SCH ×2 (08:17→17:13)
[2016-11-10] MEDS: FUROSEMIDE 40 MG TAB PO SCH (08:17)
[2016-11-10] MEDS: FOLIC ACID 1 MG TAB PO SCH (08:18)
[2016-11-10] MEDS: PIPERACILLIN-TAZOBACTAM 3.375 GM in DEXTROSE/WATER 1 50ML.BAG IVPB SCH ×2 (08:21→17:16)
[2016-11-10] MEDS ORDERED: IV VANCOMYCIN PER PHARMACY 1 EACH MISC MISCELLANE PRN (08:53)
--- NOTE | 2016-11-10 09:48 | CONS ---
CONSULTATION DATE OF CONSULTATION: 11/09/2016. REASON FOR CONSULTATION: Dyspnea. This is a 76-year-old gentleman who follows with Dr. Haider as his primary care physician. He has a history of chronic obstructive pulmonary disease, hypertension, osteoarthritis, home oxygen at 2L, CVA, early dementia. He had presented here to the emergency room after complaining of increasing shortness of breath approximately 2 days prior to his arrival. The patient himself is very hard of hearing and has early dementia and is a poor historian. He does have some family at the bedside who are supplying some information today. He is seen in consultation on the selective care unit. Currently he is sitting up in a chair at the bedside. He does deny any worsening shortness of breath. He has a loose nonproductive cough. No chills or night sweats. Chest x-ray reveals pulmonary venous hypertension and some interstitial edema and suspected left lower lobe atelectasis. An echocardiogram reveals moderately impaired left ventricular systolic function with an estimated ejection fraction of 40% to 45%. There was a moderate generalized pericardial effusion as well. There is also moderate aortic stenosis. PAST MEDICAL HISTORY: Includes chronic obstructive pulmonary disease, hypertension. PAST SURGICAL HISTORY: Some abdominal surgery. ALLERGIES: No known drug allergies. MEDICATIONS: 1. Norvasc 10 mg daily. 2. Flomax 0.4 mg daily. 3. Methotrexate 7.5 mg daily. 4. Lasix 40 mg daily. 5. Folic acid 1 mg daily. 6. Aspirin 81 mg daily. 7. Tylenol No.3, 1-2 tablets every 6 hours p.r.n. REVIEW OF SYSTEMS: Unable to be obtained from the patient, as he is quite hard of hearing and some mild early dementia. PHYSICAL EXAM: He is awake and alert, in no acute distress. Vital signs revealed blood pressure 118/61, heart rate 90, respirations 18, temperature is 96.9. He is 93% O2 saturation on 4L/minute per nasal cannula. HEAD: Normocephalic. Sclerae are anicteric. NECK: Supple. Trachea midline. LUNGS: Clear anteriorly. There were crackles in the bilateral posterior bases, diminished. HEART: Regular S1, S2. ABDOMEN: Soft, nontender. Bowel sounds are present. There is 1 to 2+ lower extremity peripheral edema. No clubbing. No cyanosis. Peripheral pulses are intact. INVESTIGATIONS: Chest x-ray as above. Lab results revealed WBC 4.3, hemoglobin 10.3, platelet count 239,000. Sodium 137, potassium 4.2, chloride 103, CO2 27, BUN 34, creatinine 2.30. Troponin 0.038, 0.034. ProBNP 3480. Medications are reviewed. IMPRESSION: 1. Dyspnea, multifactorial in a patient found to have a suspected acute exacerbation of chronic obstructive pulmonary disease complicated by left lower lobe atelectasis along with an exacerbation of congestive heart failure. 2. Acute exacerbation of systolic congestive heart failure with an estimated ejection fraction 40% to 45%. 3. Moderate aortic valve sclerosis. 4. History of chronic tobacco dependence. 5. Hypertension. 6. Mild early dementia. 7. Hearing impairment. PLAN: The patient was seen and evaluated by Dr. Cat. We could not review the actual chest x-ray, as the computers are down. According to the report, though, there may be left lower lobe pneumonia. Will go ahead and continue with current antibiotics in the form of Zosyn and Levaquin. He is on bronchodilators and IV Solu-Medrol. He is being diuresed. It is unclear if the patient has been seen by a electrical supervisor in the past. He would benefit from full pulmonary function testing to evaluate the severity of his suspected chronic obstructive pulmonary disease and make recommendations for maintenance medications. The patient has been on methotrexate as well. He is on heparin for DVT prophylaxis. We will continue to follow and make further recommendations based on his clinical status. I performed a History & Physical Examination of the patient and discussed their management with nurse practitioner. I reviewed the nurse practitioner's note and agree with the documented findings and plan of care. MMODL / IJN: [id number] /
--- NOTE | 2016-11-10 10:36 | P.PN ---
Subjective Principal diagnosis: Pneumonia and congestive heart failure This is a 76-year-old patient with history of COPD, hyperlipidemia, hypertension , heart early dementia, who presented to the hospital with symptoms of shortness of breath with associated cough. Currently receiving treatment for pneumonia as well as congestive heart failure. Diminished this morning, patient was sitting up in the chair, alert and oriented times one. Mild troponin elevation was noted, not consistent with acute coronary syndrome, likely secondary to abnormal renal function. Echocardiogram with Doppler study was performed which revealed an ejection fraction of 40-45% with inferior septal hypokinesia. Blood pressure 118/60, heart rate in the 90s. Hemoglobin 10.3, platelet count 239, BUN 34, creatinine 2.3, potassium 4.2. Patient is currently on oral Lasix, IV antibiotics. 11/10/2016 Patient seen and examined this morning, much more alert today. HemoGlobin 9.3, white blood cell count 11.3, potassium 4.2, BUN 41, creatinine 2.5. Blood pressure 100/60, heart rate in the 90s to low 100s, 93% on 4 L of oxygen. Objective - Vital Signs Vital signs: Vital Signs Temp 98 F 11/10/16 08:00 Pulse 100 11/10/16 08:00 Resp 18 11/10/16 08:00 BP 101/59 11/10/16 08:00 Pulse Ox 93 L 11/10/16 08:00 Intake & Output 11/09/16 11/10/16 11/10/16 18:59 06:59 18:59 Intake Total 480 120 120 Output Total 300 Balance 180 120 120 Intake: IV 120 Sodium Chloride 0.9% 1, 120 000 ml @ 100 mls/hr IV . Q10H [facility] Rx#:[id number] Oral 480 120 Output: Urine 300 Other: Voiding Method Urinal Bedside Commode Bedside Commode Diaper Urinal Urinal Incontinent Diaper Diaper Incontinent Incontinent # Voids 1 - Exam PHYSICAL EXAMINATION: HEENT: Head is atraumatic, normocephalic. Pupils equal, round. Neck is supple. There is no elevated jugular venous pressure. HEART EXAMINATION: S1 and S2 with systolic murmur is heard. CHEST EXAMINATION: Lungs reveal improvement in air entry to bilateral bases. ABDOMEN: Soft, nontender. Bowel sounds are heard. No organomegaly noted. EXTREMITIES:[ 2+ peripheral pulses with evidence of peripheral edema NEUROLOGIC patient is awake, alert and oriented -2. . - Labs CBC & Chem 7: 11/10/16 05:47 11/10/16 05:43 Labs: Abnormal Lab Results - Last 24 Hours (Table) 11/09/16 11/09/16 11/09/16 Range/Units 11:53 16:38 20:48 WBC (3.8-10.6) k/uL RBC (4.30-5.90) m/uL Hgb (13.0-17.5) gm/dL Hct (39.0-53.0) % RDW (11.5-15.5) % Neutrophils # (1.3-7.7) k/uL BUN (9-20) mg/dL Creatinine (0.66-1.25) mg/dL Glucose (74-99) mg/dL POC Glucose (mg/dL) 264 H 209 H 183 H (75-99) mg/dL AST (17-59) U/L Total Protein (6.3-8.2) g/dL Albumin (3.5-5.0) g/dL 11/10/16 11/10/16 11/10/16 Range/Units 05:43 05:47 06:42 WBC 11.3 H (3.8-10.6) k/uL RBC 3.36 L (4.30-5.90) m/uL Hgb 9.3 L (13.0-17.5) gm/dL Hct 30.0 L (39.0-53.0) % RDW 17.8 H (11.5-15.5) % Neutrophils # 8.8 H (1.3-7.7) k/uL BUN 41 H (9-20) mg/dL Creatinine 2.52 H (0.66-1.25) mg/dL Glucose 122 H (74-99) mg/dL POC Glucose (mg/dL) 137 H (75-99) mg/dL AST 16 L (17-59) U/L Total Protein 5.7 L (6.3-8.2) g/dL Albumin 2.8 L (3.5-5.0) g/dL Microbiology - Last 24 Hours (Table) 11/08/16 08:17 Blood Culture - Preliminary Blood No Growth after 48 hours 11/08/16 06:40 Blood Culture Gram Stain - Preliminary Blood Blood Culture - Preliminary Coagulase Negative Staph Assessment and Plan (1) Diastolic CHF, acute on chronic Status: Acute (2) Elevated troponin Status: Acute (3) Chronic renal failure Status: Acute (4) COPD (chronic obstructive pulmonary disease) Status: Acute (5) Dementia Status: Acute (6) Left lower lobe pneumonia Status: Acute Plan: From cardiology's perspective, we will recommend to continue the patient on his current medications. He may be able to be transferred to a medical surgical unit from our perspective. We will follow him now on an as-needed basis only, please don't hesitate to call with any questions. DNP note has been reviewed, I agree with a documented findings and plan of care. Patient was seen and examined.
--- NOTE | 2016-11-10 10:42 | CONS ---
CONSULTATION DATE OF SERVICE: 11/09/2016 REASON FOR CONSULTATION: Bacteremia. HISTORY OF PRESENT ILLNESS: The patient is a 76-year-old, male, who presented to the ER at [facility] yesterday morning with the chief complaints of difficulty breathing. Apparently, this symptom has been going on for about 2 days prior to admission to the hospital. Patient was significantly dyspneic on arrival to the ER. The patient did have an x-ray that shows left lower lobe pneumonia. The patient did have a fever of 100.7. The patient has been started on Zosyn and Levaquin. The patient did have blood cultures drawn, which are no coming positive, gram-positive cocci . Hence, ID was consulted for further recommendation of antibiotic therapy. The patient is not a very good historian. He did mention he did have a cough, but not bringing up any sputum. No chest pain. No abdominal pain. No nausea, vomiting, or any urinary symptoms. No choking on food or any diarrhea. REVIEW OF SYSTEMS: Positive for weakness and fever. EYES: No complaint. ENT: No complaint. RESPIRATORY: As per HPI. CARDIOVASCULAR: No complaint. GENITOURINARY: No complaint. GASTROINTESTINAL: No complaint. MUSCULOSKELETAL: No complaint. INTEGUMENTARY: No complaint. PSYCHOLOGICAL: No complaint. ENDOCRINE: No complaint. NEUROLOGIC: No complaint. 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 PAST SURGICAL HISTORY: Benign lung mass removed left lung, heart catheterization, hernia repair, tonsillectomy. SOCIAL HISTORY: Remote history of smoking. No drinking or drug use. FAMILY HISTORY: Father of a cancer of unknown primary and coronary artery disease. Mother of brain aneurysm. ALLERGIES: No known drug allergies. MEDICATIONS: Medications include the patient is currently on DuoNeb, aspirin, folic acid, Lasix, heparin, Humalog, methotrexate, Solu-Medrol, piperacillin tazobactam, Levaquin, Flomax. PHYSICAL EXAMINATION: On examination, blood pressure is 120/58 with a pulse of 81, temperature 98.6 with a T- max of 100 and patient's fever was 100.7. He is 98% on 4 L nasal cannula. General description is an elderly male up in the chair in no distress. No tachypnea or accessory muscle of respiration use. HEENT examination shows pallor no scleral icterus. Oral mucous membranes dry. NECK: Trachea is central. No thyromegaly. LUNGS: Unlabored breathing. Coarse breath sounds at the bases. No wheeze. HEART:S1, S2. Regular rate and rhythm. ABDOMEN: Soft, no tenderness. No guarding. No rigidity. EXTREMITIES: No edema of the feet. SKIN EXAMINATION: No rash or mass palpable. NEUROLOGICAL: Patient is awake, alert, oriented x2. Mood affect normal. LABS: Hemoglobin 10.2, white count 4.3 with a BUN of 34, creatinine is 2.30. Admission creatinine was 2.38. Blood culture with gram-positive cocci. DIAGNOSTIC IMPRESSION AND PLAN: Patient admitted to hospital with difficulty in breathing. He did have a cough with evidence of left lower lobe pneumonia. Now with gram-positive bacteremia , could be more likely a however other resistant gram positive could not be entirely excluded. PLAN: 1. Blood cultures repeat to make sure no evidence of any persistent bacteremia. 2. Continue patient on Zosyn. Discontinue Levaquin and add vancomycin pharmacy to dose, target of 15. 3. Obtain sputum for Gram stain, culture and sensitivity. 4. We will follow up on clinical condition and culture to further adjust medication if needed. Thank you for this consultation. Will follow this patient along with you. MMODL / IJN: [id number] /
--- NOTE | 2016-11-10 11:03 | P.PN ---
Progress Note - Text This is an addendum to the progress note dictated earlier today by cardiology. Patient was noted by echo to have a rare cardial effusion, he is asymptomatic. There cardial effusion could be secondary to infection. Repeat echocardiogram with Doppler study will be performed as an outpatient in 3-4 weeks. DNP note has been reviewed, I agree with a documented findings and plan of care. Patient was seen and examined.
[2016-11-10] MEDS: IPRATROPIUM-ALBUTEROL 3 ML NEB INHALATION PRN ×2 (11:41→16:43)
[2016-11-10] MEDS ORDERED: LEVOFLOXACIN 250 MG TAB PO SCH (12:00)
--- NOTE | 2016-11-10 12:28 | P.PN ---
Subjective Progress note dated 11/10/2016 76-year-old male seen by myself and my nurse practitioner yesterday. He has a history of underlying COPD hypertension DJD chronic hypoxemia with the need for home oxygen at 2 L CVA and early dementia. He presented to the emergency department with complaints of 2 days of increasing shortness of breath. He apparently also complained of a loose nonproductive cough. Chest x-ray was consistent with either pulmonary venous hypertension/interstitial edema or possible left lower lobe atelectasis/infiltrate. The patient does have a history of moderate aortic stenosis his ejection fraction slightly reduced at 40 -45%. He does feel better today. He also asked today whether or not he could be discharged home. Objective - Vital Signs Vital signs: Vital Signs Temp 98 F 11/10/16 08:00 Pulse 52 L 11/10/16 11:53 Resp 18 11/10/16 08:00 BP 101/59 11/10/16 08:00 Pulse Ox 93 L 11/10/16 08:00 Intake & Output 11/09/16 11/10/16 11/10/16 18:59 06:59 18:59 Intake Total 480 120 120 Output Total 300 Balance 180 120 120 Intake: IV 120 Sodium Chloride 0.9% 1, 120 000 ml @ 100 mls/hr IV . Q10H [facility] Rx#:[id number] Oral 480 120 Output: Urine 300 Other: Voiding Method Urinal Bedside Commode Bedside Commode Diaper Urinal Urinal Incontinent Diaper Diaper Incontinent Incontinent # Voids 1 - Exam No acute distress, oriented 3. HEENT examination is grossly unremarkable. Mucous membranes are moist. Neck supple. Full range of motion. Trachea midline. No adenopathy or thyromegaly. Neck veins are flat. Lungs reveal few scattered bibasilar crackles. No wheezes. No rhonchi. Cardiac evaluation reveals regular rhythm rate. His heart systolic murmur consistent with his aortic stenosis. S1 and S2 normal. No S3-S4. Abdomen soft bowel sounds are heard. No masses or tenderness. Extremities are intact. No cyanosis clubbing noted. Mild edema. Skin without rash. Neurologic examination is nonfocal. - Labs CBC & Chem 7: 11/10/16 05:47 11/10/16 05:43 Labs: Abnormal Lab Results - Last 24 Hours (Table) 11/09/16 11/09/1617 Range/Units 11:53 16:38 20:48 WBC (3.8-10.6) k/uL RBC (4.30-5.90) m/uL Hgb (13.0-17.5) gm/dL Hct (39.0-53.0) % RDW (11.5-15.5) % Neutrophils # (1.3-7.7) k/uL BUN (9-20) mg/dL Creatinine (0.66-1.25) mg/dL Glucose (74-99) mg/dL POC Glucose (mg/dL) 264 H 209 H 183 H (75-99) mg/dL AST (17-59) U/L Total Protein (6.3-8.2) g/dL Albumin (3.5-5.0) g/dL 11/10/16 11/10/16 11/10/16 Range/Units 05:43 05:47 06:42 WBC 11.3 H (3.8-10.6) k/uL RBC 3.36 L (4.30-5.90) m/uL Hgb 9.3 L (13.0-17.5) gm/dL Hct 30.0 L (39.0-53.0) % RDW 17.8 H (11.5-15.5) % Neutrophils # 8.8 H (1.3-7.7) k/uL BUN 41 H (9-20) mg/dL Creatinine 2.52 H (0.66-1.25) mg/dL Glucose 122 H (74-99) mg/dL POC Glucose (mg/dL) 137 H (75-99) mg/dL AST 16 L (17-59) U/L Total Protein 5.7 L (6.3-8.2) g/dL Albumin 2.8 L (3.5-5.0) g/dL Microbiology - Last 24 Hours (Table) 11/08/16 08:17 Blood Culture - Preliminary Blood No Growth after 48 hours 11/08/16 06:40 Blood Culture Gram Stain - Preliminary Blood Blood Culture - Preliminary Coagulase Negative Staph Assessment and Plan (1) Aortic stenosis Status: Acute (2) Systolic heart failure Status: Acute (3) Hypertension Status: Acute (4) COPD (chronic obstructive pulmonary disease) Status: Acute (5) Congestive heart failure Status: Acute (6) Dementia Status: Acute (7) Diastolic CHF, acute on chronic Status: Acute (8) Left lower lobe pneumonia Status: Acute (9) Renal failure syndrome Status: Acute Plan: Plan dated 11/10/2016. The patient's labs medications and x-rays are all reviewed. The patient was started on Zosyn and Levaquin. The patient was also placed on bronchodilators and IV Solu-Medrol. He is feeling much improved. The patient is receiving diuretics as well. We'll continue to follow. No additional recommendations are made. Prognosis is guarded. We'll leave that up to DrAmaris managed in terms of time of discharge. Time with Patient: Less than 30
[2016-11-10] MEDS ORDERED: NITROGLYCERIN SL TABS 0.4 MG TAB SUBLINGUAL PRN (12:42)
[2016-11-10] MEDS: Acetaminophen-Codeine 300-30mg TAB PO PRN ×2 (14:00→20:19)
[2016-11-10] MEDS ORDERED: VANCOMYCIN 1,250 MG in SODIUM CHLORIDE 0.9% 250 ML IVPB ONE (14:00)
--- NOTE | 2016-11-10 14:25 | P.PN ---
Subjective Principal diagnosis: 76-year-old male seen examined this morning on rounds with Dr. Haider. The patient was admitted for pneumonia, CHF, and COPD. The patient states he is feeling well. He denies shortness of breath or chest pain. His has been afebrile. His vital signs are stable. His heart rate is noted to be in the 50's the last two recordings. Prior to that the patient was ranging between 70-90s. He has not taking any beta-blockers. The patient had an echocardiogram completed which showed an EF of 40-45%. Additionally, there is a pericardial effusion present. Cardiology is following and recommends repeat echo in 3-[address] Lynn, infectious disease, was consulted due to preliminary results of blood cultures that revealed gram-positive cocci in groups. Final culture revealed coagulase negative staph. His levaquin was discontinued. He remains on Zosyn. He also received Vanco. Repeat cultures were ordered. Sputum culture was also ordered. Objective - Vital Signs Vital signs: Vital Signs Temp 98 F 11/10/16 08:00 Pulse 52 L 11/10/16 11:53 Resp 18 11/10/16 08:00 BP 101/59 11/10/16 08:00 Pulse Ox 93 L 11/10/16 08:00 Intake & Output 11/09/16 11/10/16 11/10/16 18:59 06:59 18:59 Intake Total 480 120 120 Output Total 300 Balance 180 120 120 Intake: IV 120 Sodium Chloride 0.9% 1, 120 000 ml @ 100 mls/hr IV . Q10H [facility] Rx#:[id number] Oral 480 120 Output: Urine 300 Other: Voiding Method Urinal Bedside Commode Bedside Commode Diaper Urinal Urinal Incontinent Diaper Diaper Incontinent Incontinent # Voids 1 - Exam GENERAL: Alert and oriented. Appears in no acute distress. Pleasant. RESPIRATORY: Lungs diminished bilaterally. No use of accessory muscles. Patient maintaining oxygen saturation greater than 92% on 4L NC. CARDIOVASCULAR: Rate and rhythm regular. Systolic murmur auscultated at left sternal border. S1 and S2 noted. No JVD noted. EXTREMITIES: No lower extremity edema noted. Palpable pedal pulses +2. ABDOMEN: No distention noted. Abdomen soft and round. Normal active bowel sounds auscultated 4 quadrants. No pain or tenderness noted upon palpation. - Labs CBC & Chem 7: 11/10/16 05:47 11/10/16 05:43 Labs: Abnormal Lab Results - Last 24 Hours (Table) 11/09/16 11/09/16 11/09/16 Range/Units 11:53 16:38 20:48 WBC (3.8-10.6) k/uL RBC (4.30-5.90) m/uL Hgb (13.0-17.5) gm/dL Hct (39.0-53.0) % RDW (11.5-15.5) % Neutrophils # (1.3-7.7) k/uL BUN (9-20) mg/dL Creatinine (0.66-1.25) mg/dL Glucose (74-99) mg/dL POC Glucose (mg/dL) 264 H 209 H 183 H (75-99) mg/dL AST (17-59) U/L Total Protein (6.3-8.2) g/dL Albumin (3.5-5.0) g/dL 11/10/16 11/10/16 11/10/16 Range/Units 05:43 05:47 06:42 WBC 11.3 H (3.8-10.6) k/uL RBC 3.36 L (4.30-5.90) m/uL Hgb 9.3 L (13.0-17.5) gm/dL Hct 30.0 L (39.0-53.0) % RDW 17.8 H (11.5-15.5) % Neutrophils # 8.8 H (1.3-7.7) k/uL BUN 41 H (9-20) mg/dL Creatinine 2.52 H (0.66-1.25) mg/dL Glucose 122 H (74-99) mg/dL POC Glucose (mg/dL) 137 H (75-99) mg/dL AST 16 L (17-59) U/L Total Protein 5.7 L (6.3-8.2) g/dL Albumin 2.8 L (3.5-5.0) g/dL Microbiology - Last 24 Hours (Table) 11/08/16 08:17 Blood Culture - Preliminary Blood No Growth after 48 hours 11/08/16 06:40 Blood Culture Gram Stain - Preliminary Blood Blood Culture - Preliminary Coagulase Negative Staph Assessment and Plan Plan: ASSESSMENT: -Pneumonia, present on admission, CXR reveals bilateral infiltrates -Acute exacerbation of COPD, present on admission -Dyspnea, present on admission, related to pneumonia and systolic CHF exacerbation, resolving -Exacerbation of systolic congestive heart failure, present on admission -Hypertensive urgency, present on admission, resolved -Elevated lactic acid, present on admission, likely due to acute kidney injury and vascular depletion, resolved -Chronic hypoxic respiratory failure: supplemental oxygen dependent - patient wears 2L NC at home -Tachycardia, present on admission, resolved -Acute Kidney Injury with elevated creatinine of 2.38 on admission, baseline unknown -Tachycardia, febrile, hypotension, present on admission, suspect early sepsis, Resolving -Pericardial effusion, may be due to exacerbation of systolic congestive heart failure or infectious process PLAN: -Continue antibiotics per Dr. Lynn -Continue lasix 40mg daily -GI prophylaxis: Protonix 40 mg IV daily -DVT prophylaxis: Heparin 5000 units subcu every 8 hours -Pulmonary on consult: Appreciate recommendations and input -Cardiology on consult: Appreciate recommendations and input -Continue IV steroids. Will decrease dose. -Continue breathing treatments -Monitor labs -Monitor vital signs and address as appropriate The above impression and plan of care have been discussed and directed by signing physician. Anay Lara, nurse practitioner, acting as scribe for signing physician.
--- NOTE | 2016-11-10 16:33 | PN ---
PROGRESS NOTE DATE OF SERVICE: 11/10/2016 REASON FOR FOLLOWUP: 1. Pneumonia. 2. Positive blood culture. INTERVAL HISTORY: The patient is afebrile. He is breathing comfortably. The patient denies any chest pain. No shortness of breath. Very minimal cough. No nausea, vomiting or any diarrhea. PHYSICAL EXAMINATION: Blood pressure is 101/59 with a pulse of 100, temperature 98. He is 93% on 4 L nasal cannula. General description is an elderly male up in the bed in no distress. RESPIRATORY SYSTEM: Unlabored breathing with some decreased breath sounds at the bases. No wheeze. HEART: S1, S2. Regular rate and rhythm. ABDOMEN: Soft. No tenderness. LABS: Hemoglobin 9.3, white count 11.3, BUN of 41. Creatinine is 2.52. Blood culture with a coagulase-negative staph. Repeat blood culture has been negative. Sputum without blood. DIAGNOSTIC IMPRESSION/PLAN: 1. Patient admitted to hospital with difficulty in breathing, more likely multifactorial with a combination of chronic obstructive pulmonary disease exacerbation and possible pneumonia. So far he has responded to the Zosyn. That will be continued. Will try to obtain a sputum sample to narrow down the antibiotics. 2. Positive blood culture for coagulase-negative staphylococcus, likely a contamination. No need for therapy for the same. Will discontinue the vancomycin. MMODL / IJN: [id number] /
[2016-11-10 16:36] LABS: Glucose,Whole Blood 155 mg/dL (75-99)
[2016-11-10] MEDS: methylPREDNISolone SOD SUCCI 40 MG/ML 1 ML VIAL IV SCH (17:17)
[2016-11-10 21:12] LABS: Glucose,Whole Blood 135 mg/dL (75-99)
[2016-11-10] MEDS: ASPIRIN 81 MG PO SCH (22:02)
[2016-11-10 22:07] LABS: Glucose,Whole Blood 167 mg/dL (75-99)
[2016-11-11] MEDS: methylPREDNISolone SOD SUCCI 40 MG/ML 1 ML VIAL IV SCH ×2 (00:07→08:02)
[2016-11-11] MEDS: HEPARIN SODIUM,PORCINE 5,000 UNIT/ML 1 ML VIAL SQ SCH ×2 (00:07→08:02)
[2016-11-11] MEDS: PIPERACILLIN-TAZOBACTAM 3.375 GM in DEXTROSE/WATER 1 50ML.BAG IVPB SCH ×2 (00:08→09:18)
[2016-11-11] MEDS: Acetaminophen-Codeine 300-30mg TAB PO PRN ×2 (02:38→12:18)
[2016-11-11 07:00] LABS: Glucose,Whole Blood 121 mg/dL (75-99)
[2016-11-11] MEDS: INSULIN LISPRO (humaLOG) 300 UNIT/3 ML VIAL SQ SCH ×2 (08:00→12:43)
[2016-11-11] MEDS: TAMSULOSIN 0.4 MG CAP.ER.24H PO SCH (08:03)
[2016-11-11] MEDS: FUROSEMIDE 40 MG TAB PO SCH (08:03)
[2016-11-11] MEDS: PANTOPRAZOLE 40 MG TABLET PO SCH (08:03)
[2016-11-11 08:54] LABS: Anisocytosis Slight; Aty Lym Flag Slight; CHCM 30.6; HCT 32.2 % (39.0-53.0); HDW 3.73; HGB 10.2 gm/dL (13.0-17.5); Hypochromasia Marked; MCH 28.1 pg (25.0-35.0); MCHC 31.7 g/dL (31.0-37.0); MCV 88.6 fL (80.0-100.0); Poikilocytosis Slight; RBC 3.64 m/uL (4.30-5.90); RDW 16.6 % (11.5-15.5); WBC 13.2 k/uL (3.8-10.6); WBC (Perox) 12.95
[2016-11-11 09:03] LABS: Calcium 9.5 mg/dL (8.4-10.2); Potassium 3.8 mmol/L (3.5-5.1); Total Bilirubin 0.4 mg/dL (0.2-1.3); Total Protein 6.1 g/dL (6.3-8.2)
--- NOTE | 2016-11-11 11:07 | P.PN ---
Subjective Progress note dated 11/10/2016 76-year-old male seen by myself and my nurse practitioner yesterday. He has a history of underlying COPD hypertension DJD chronic hypoxemia with the need for home oxygen at 2 L CVA and early dementia. He presented to the emergency department with complaints of 2 days of increasing shortness of breath. He apparently also complained of a loose nonproductive cough. Chest x-ray was consistent with either pulmonary venous hypertension/interstitial edema or possible left lower lobe atelectasis/infiltrate. The patient does have a history of moderate aortic stenosis his ejection fraction slightly reduced at 40 -45%. He does feel better today. He also asked today whether or not he could be discharged home. Progress note dated 11/11/2016 76-year-old male who we saw in consultation for underlying COPD, hypertension, degenerative joint disease, chronic hypoxemia, the need for home oxygen therapy. He also has a history of CVA and early dementia. He presented to the emergency department with 2-3 days of increasing shortness of breath and loose nonproductive cough. His chest x-ray was consistent with the pulmonary interstitial edema. He also possibly has some left lower lobe atelectasis and/ or infiltrate. The patient does suffer from moderate aortic stenosis and a reduced ejection fraction of 40-45%. His has the typical murmur of aortic stenosis. The patient could be discharged home today. Additional recommendations suggestions are forthcoming. We will switch him to oral prednisone at 30 mg a day and the primary service can taper that over about 12 days. Objective - Vital Signs Vital signs: Vital Signs Temp 96.7 F L 11/11/16 07:00 Pulse 63 11/11/16 07:00 Resp 20 11/11/16 07:00 BP 137/71 11/11/16 07:00 Pulse Ox 96 11/11/16 07:15 Intake & Output 11/10/16 11/11/16 11/11/16 18:59 06:59 18:59 Intake Total 695 600 Balance 695 600 Weight 73 kg Intake: Intake, IV Titration 50 Amount Piperacillin-Tazobactam 3 50 .375 gm In Dextrose/Water 1 50ml.bag @ 12.5 mls/hr IVPB Q8HR [facility] Rx#: [id number] Oral 645 600 Other: Voiding Method Bedside Commode Bedside Commode Bedside Commode Urinal Urinal Urinal Diaper Diaper Diaper Incontinent Incontinent Incontinent # Voids 2 2 - Exam No acute distress, oriented 3. HEENT examination is grossly unremarkable. Mucous membranes are moist. Neck supple. Full range of motion. Trachea midline. No adenopathy or thyromegaly. Neck veins are flat. Lungs reveal few scattered bibasilar crackles. No wheezes. No rhonchi. Lung sounds today are improved. Cardiac evaluation reveals regular rhythm rate. His heart systolic murmur consistent with his aortic stenosis. S1 and S2 normal. No S3-S4. Abdomen soft bowel sounds are heard. No masses or tenderness. Extremities are intact. No cyanosis clubbing noted. Mild edema. Skin without rash. Neurologic examination is nonfocal. - Labs CBC & Chem 7: 11/11/16 08:13 11/11/16 08:13 Labs: Abnormal Lab Results - Last 24 Hours (Table) 11/10/16 11/10/16 11/10/16 Range/Units 11:51 16:52 21:09 WBC (3.8-10.6) k/uL RBC (4.30-5.90) m/uL Hgb (13.0-17.5) gm/dL Hct (39.0-53.0) % RDW (11.5-15.5) % BUN (9-20) mg/dL Creatinine (0.66-1.25) mg/dL Glucose (74-99) mg/dL POC Glucose (mg/dL) 155 H 167 H 135 H (75-99) mg/dL Total Protein (6.3-8.2) g/dL Albumin (3.5-5.0) g/dL 11/11/16 11/11/16 11/11/16 Range/Units 06:58 08:13 08:13 WBC 13.2 H (3.8-10.6) k/uL RBC 3.64 L (4.30-5.90) m/uL Hgb 10.2 L (13.0-17.5) gm/dL Hct 32.2 L (39.0-53.0) % RDW 16.6 H (11.5-15.5) % BUN 51 H (9-20) mg/dL Creatinine 2.54 H (0.66-1.25) mg/dL Glucose 154 H (74-99) mg/dL POC Glucose (mg/dL) 121 H (75-99) mg/dL Total Protein 6.1 L (6.3-8.2) g/dL Albumin 3.1 L (3.5-5.0) g/dL Microbiology - Last 24 Hours (Table) 11/08/16 08:17 Blood Culture - Preliminary Blood No Growth after 72 hours 11/08/16 06:40 Blood Culture Gram Stain - Final Blood Blood Culture - Final Coagulase Negative Staph 11/09/16 16:11 Blood Culture - Preliminary Blood No Growth after 24 hours Assessment and Plan (1) Aortic stenosis Status: Acute (2) Systolic heart failure Status: Acute (3) Hypertension Status: Acute (4) COPD (chronic obstructive pulmonary disease) Status: Acute (5) Congestive heart failure Status: Acute (6) Dementia Status: Acute (7) Diastolic CHF, acute on chronic Status: Acute (8) Left lower lobe pneumonia Status: Acute (9) Renal failure syndrome Status: Acute Plan: Plan dated 11/10/2016. The patient's labs medications and x-rays are all reviewed. The patient was started on Zosyn and Levaquin. The patient was also placed on bronchodilators and IV Solu-Medrol. He is feeling much improved. The patient is receiving diuretics as well. We'll continue to follow. No additional recommendations are made. Prognosis is guarded. We'll leave that up to DrAmaris managed in terms of time of discharge. Plan dated 11/11/2016 The patient's doing well. We'll switch his IV Solu-Medrol to prednisone 30 mg a day. It can be weaned by the primary service over about 12 days. Probably go 30 mg 4 days 20 mm for 4 days and 10 mg for 4 days and stop. Additional recommendations suggestions forthcoming. Stable from the pulmonary standpoint. Time with Patient: Less than 30
[2016-11-11 11:30] LABS: Add Differential Manual Differential
[2016-11-11 11:32] LABS: Manual Review Performed; Nucleated Red Blood Cells 0 /100 WBC (0-0); Total Cells Counted 100
[2016-11-11 12:22] LABS: Glucose,Whole Blood 192 mg/dL (75-99)
[2016-11-11] MEDS: FOLIC ACID 1 MG TAB PO SCH (12:43)
--- NOTE | 2016-11-11 12:51 | CDI ---
In responding to this query, please exercise your independent professional judgment. The [facility] Coding Staff and Clinical Documentation Specialists appreciate your assistance in clarifying documentation, maintaining compliance with coding guidelines, accurately documenting patients condition and capturing severity of illness. The fact that a question is asked does not imply that any particular answer is desired or expected. Communication forms are a method of clarifying documentation and are not made part of the Legal Health Record. Thank you in advance for your clarification. Last Revision, December 2014 Lanie Abdul [address] [place] [address] Documentation Clarification Form Date: 11/11/2016 12:39:00 PM From: Margaret Gunn RN, CCDS Admit Date: 11/08/2016 9:45:00 AM Patient Name: Tejas Ibarra Visit Number: [id number] Dr. Jayme Haider/ Huong Lara CNP Pneumonia was documented in your notes and requires further specificity. History/Risk Factors: Home O2 at 2 L NC Clinical Indicators: WBC:7.9/4.3/11.3/13.2 Left shift: 5.8/9.35 CXR: bilateral infiltrate and small effusion correlate for mild venous congestion 11/11 Lung/Breathing assessment: "Lungs reveal few scattered bibasilar crackles. No wheezes. No rhonchi. Lung sounds today are improved." Treatment: Antibiotics: Vanco PTD, IV Zosyn 3.375gm IVPB Q 8 hrs, Levaquin 500 mg IVPB Q 24 hrs O2: 6 L NC Weaned down to 4 L NC Breathing TX: Duoneb Q4HRs PRN In order to capture the severity of condition, please clarify if the condition signifies and you are treating for: Aspiration Pneumonia, identify if: Due to solids or liquids Bacterial Pneumonia, specify causal organism (if known) Gram Negative Pneumonia Due to Strep Due to Staph Due to E. coli Other bacteria (specify) Viral Pneumonia, specify casual organism (if known) Unable to determine Link any associated conditions to the pneumonia: Influenza with secondary gram negative pneumonia Sepsis due to pneumonia Acute respiratory failure due to pneumonia Other, please specify Please document in your progress notes and discharge summary in order to capture severity of illness and risk of mortality. Include clinical findings that support your diagnosis. FYI: Press F11 to launch patient chart. Place X here if this finding has no clinical significance, is not applicable or if you are not able to provide any additional documentation. MTDD
--- NOTE | 2016-11-11 13:19 | P.DS ---
Providers Date of admission: 11/08/16 09:45 Expected date of discharge: 11/11/16 Attending physician: Jayme Haider Consults: 11/08/16 09:44 Consult Physician Routine Consulting Provider: Theodore Cat Consult Reason/Comments: Pneumonia, COPD exacerbation Do you want consulting provider notified?: Yes 11/08/16 09:47 Consult Physician Routine Consulting Provider: Beni Burns Consult Reason/Comments: Elevated troponin, CHF, renal failure syndrome Do you want consulting provider notified?: Yes 11/09/16 07:53 Consult Physician Routine Consulting Provider: Jacobo Lynn Consult Reason/Comments: positive blood cultures Do you want consulting provider notified?: Yes Primary care physician: Jayme Haider [facility] Course: This is a 76 year old male patient who presented to the emergency room on November 08, 2016 with a chief complaint of shortness of breath for two days. The patient also complained of a cough. In the emergency room, a chest xray revealed pulmonary venous congestion and left lower lobe atelectasis versus pneumonia. An EKG was performed which showed sinus tachycardia with a rate in the 120s. Initially the patient presented hypertensive, but the patient's blood pressure did decrease and the patient received 2L in fluid boluses. He also received 40mg IVP lasix x1. His lactic acid was elevated at 2.3 He was febrile in the ER with a temperature of 100.7. Blood cultures were drawn. His WBC was normal at 7.9 on admission. 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 He lives with his spouse and uses a cane to ambulate. He also wears oxygen 2L NC around the clock at home. The patient is hard of hearing. The patient was admitted to the hospital under the care of Dr. Haider. Consults were placed to Dr. Cat and Dr. Burns. His blood cultures were positive for coagulose negative staph and likely a contaminated specimen. The patient had repeat blood cultures drawn on 11-09-16 which are negative at the 24 hour dorothy. The patient had an echo completed with an EF of 40-45%. It also showed a pericardial effusion. Cardiology has been following the patient throughout admission and recommends patient to have a repeat in 4 weeks. His chest xray from 11-09-16 did show bilateral infiltrates. Infectious disease has been following the patient throughout admission. He has been receiving zosyn. Dr. Cat was consulted during his hospitalization for acute exacerbation of COPD. The patient was receiving IV steriods which have been tapered down. The patient states he is not short of breath and denies chest pain. He is to go home on PO steroids, 30mg for 4 days, 20mg for 4 days, and then 10 mg for [address] Irene recommendations. The patients usually cares for the patient at home. She has expressed that she would like the patient to go to [facility]. Social work and case management are working on discharge planning. DISCHARGE DIAGNOSIS: -Bacterial pneumonia, possible gram negative, present on admission, CXR reveals bilateral infiltrates, improving -Acute exacerbation of COPD, present on admission, improving -Dyspnea, present on admission, related to pneumonia and systolic CHF exacerbation, resolved -Exacerbation of systolic congestive heart failure, present on admission, resolving -Hypertensive urgency, present on admission, resolved -Elevated lactic acid, present on admission, likely due to acute kidney injury and vascular depletion, resolved -Chronic hypoxic respiratory failure: supplemental oxygen dependent - patient wears 2L NC at home -Tachycardia, present on admission, resolved -Chronic Kidney Disease, Stage IV. GFR 25 -Tachycardia, febrile, hypotension, present on admission, suspect early sepsis, Resolved. Sepsis ruled out. -Pericardial effusion, may be due to exacerbation of systolic congestive heart failure or infectious process The above impression and plan of care have been discussed and directed by signing physician. Anay Lara, nurse practitioner, acting as scribe for signing physician. Patient Condition at Discharge: Stable Plan - Discharge Summary New Discharge Prescriptions: New Ipratropium-Albuterol Nebulize [Duoneb 0.5 mg-3 mg/3 ml Soln] 3 ml INHALATION RT-Q4H PRN #120 neb PRN Reason: shortness of breath Levofloxacin [Levaquin] 500 mg PO DAILY #10 tab predniSONE 10 mg PO DAILY #24 tab Continue amLODIPine [Norvasc] 10 mg PO DAILY Tamsulosin [Flomax] 0.4 mg PO DAILY Methotrexate Sodium [Methotrexate] 7.5 mg PO SA Folic Acid 1 mg PO DAILY Aspirin EC [Ecotrin Low Dose] 81 mg PO HS Acetaminophen-Codeine 300-30mg [Tylenol w/codeine #3] 1 - 2 tab PO Q6H PRN PRN Reason: Pain Furosemide [Lasix] 40 mg PO DAILY Discharge Medication List Acetaminophen-Codeine 300-30mg [Tylenol w/codeine #3] 1 - 2 tab PO Q6H PRN 11/08 [History] Aspirin EC [Ecotrin Low Dose] 81 mg PO HS 11/08/16 [History] Folic Acid 1 mg PO DAILY 11/08/16 [History] Furosemide [Lasix] 40 mg PO DAILY 11/08/16 [History] Methotrexate Sodium [Methotrexate] 7.5 mg PO SA 11/08/16 [History] Tamsulosin [Flomax] 0.4 mg PO DAILY 11/08/16 [History] amLODIPine [Norvasc] 10 mg PO DAILY 11/08/16 [History] Ipratropium-Albuterol Nebulize [Duoneb 0.5 mg-3 mg/3 ml Soln] 3 ml INHALATION RT -Q4H PRN #120 neb 11/11/16 [Rx] Levofloxacin [Levaquin] 500 mg PO DAILY #10 tab 11/11/16 [Rx] predniSONE 10 mg PO DAILY #24 tab 11/11/16 [Rx] Follow up Appointment(s)/Referral(s): Theodore Cat DO [Doctor of Osteopathic Medicine] - 1 Week Jefferson Gillis MD [STAFF PHYSICIAN] - 4 Weeks Jayme Haider MD [Primary Care Provider] - 3 Days Activity/Diet/Wound Care/Special Instructions: Continue 2L of oxygen at home via nasal cannula Patient to have repeat echocardiogram with doppler study in 3-4 weeks as an outpatient Discharge Disposition: HOME SELF-CARE
[2016-11-11 14:56] VITALS: BP 131/69; PULSE 69; RESP 18; TEMP 97.1
[2016-11-12] MEDS ORDERED: predniSONE 10 MG TAB PO SCH (09:00)
--- NOTE | 2016-11-12 09:34 | PN ---
PROGRESS NOTE DATE OF SERVICE: 11/11/2016. REASON FOR FOLLOWUP: 1. Positive blood culture. 2. Pneumonia. INTERVAL HISTORY: The patient is seen on rounds this afternoon. The patient has been breathing more comfortably. Denies any chest pain or shortness of breath. Occasional cough. No abdominal pain or any diarrhea. PHYSICAL EXAMINATION: On examination, blood pressure 131/69 with a pulse of 69, temperature of 97.1. He is 94% on 4 L nasal cannula. General description is an elderly male, lying in bed, in no distress. RESPIRATORY SYSTEM: Unlabored breathing. Some decreased breath sounds at the bases. No wheeze. HEART: S1, S2. Regular rate and rhythm. ABDOMEN: Soft, no tenderness. LABS: Hemoglobin 10.2, white count 13.2, BUN of 51, creatinine 2.54. Blood culture repeat has been negative. DIAGNOSTIC IMPRESSION AND PLAN: 1. Patient with a positive blood culture coagulase negative staph likely secondary to contamination, no additional therapy for the same. Repeat blood cultures remain negative. 2. Pneumonia more likely community required so far no resistant pathogen. To finish therapy with p.o. Levaquin:. Family was present at the bedside. Their questions were answered. MMODL / IJN: [id number] /
[2016-11-13] MEDS ORDERED: METHOTREXATE SODIUM 2.5 MG TAB PO SCH (09:00)
== END 2016-11-11 15:35 | DRG 190 ==
LOC: EC 06:37 → SUPCPDRO 06:37 → 6SEL 09:45 → 4MS4W 11-10 18:37
PROVIDERS: ADMIT Family Medicine; ATTEND Family Medicine
DX: J44.0 Chronic obstructive pulmonary disease with (acute) lower respiratory infection (principal); J15.9 Unspecified bacterial pneumonia; I50.43 Acute on chronic combined systolic (congestive) and diastolic (congestive) heart failure; J96.11 Chronic respiratory failure with hypoxia; N18.4 Chronic kidney disease, stage 4 (severe); N17.9 Acute kidney failure, unspecified; I13.0 Hypertensive heart and chronic kidney disease with heart failure and stage 1 through stage 4 chronic kidney disease, or unspecified chronic kidney disease; F03.90 Unspecified dementia, unspecified severity, without behavioral disturbance, psychotic disturbance, mood disturbance, and anxiety; I27.2 Other secondary pulmonary hypertension; I95.9 Hypotension, unspecified; J44.1 Chronic obstructive pulmonary disease with (acute) exacerbation; Z99.81 Dependence on supplemental oxygen; I44.7 Left bundle-branch block, unspecified; L40.9 Psoriasis, unspecified; I35.0 Nonrheumatic aortic (valve) stenosis; H91.90 Unspecified hearing loss, unspecified ear; E78.5 Hyperlipidemia, unspecified; M19.90 Unspecified osteoarthritis, unspecified site; I16.0 Hypertensive urgency; R00.0 Tachycardia, unspecified; R53.83 Other fatigue; I45.4 Nonspecific intraventricular block; R50.9 Fever, unspecified; N42.9 Disorder of prostate, unspecified; R74.8 Abnormal levels of other serum enzymes; R32 Unspecified urinary incontinence; Z79.899 Other long term (current) drug therapy; Z82.49 Family history of ischemic heart disease and other diseases of the circulatory system; Z80.9 Family history of malignant neoplasm, unspecified; Z87.891 Personal history of nicotine dependence; Z86.73 Personal history of transient ischemic attack (TIA), and cerebral infarction without residual deficits; Z71.3 Dietary counseling and surveillance; Z81.1 Family history of alcohol abuse and dependence; Z83.79 Family history of other diseases of the digestive system; Z86.79 Personal history of other diseases of the circulatory system; Z87.81 Personal history of (healed) traumatic fracture; Z79.82 Long term (current) use of aspirin; Z92.25 Personal history of immunosuppression therapy; Z79.891 Long term (current) use of opiate analgesic; Z86.69 Personal history of other diseases of the nervous system and sense organs; Z87.09 Personal history of other diseases of the respiratory system
CPT/HCPCS: 36415; 71010; 71020; 80053; 82550; 82553; 83036; 83605; 83880; 84484; 85025; 85610; 85730; 87040; 93005; 93306; 94640; 94760; 96360; 96361; 96365; 96375; 99291

== ENCOUNTER 2017-03-10 13:53 | Inpatient (IN) | payer BC, MEDICARE ==
[2017-03-10] MEDS ORDERED: SODIUM CHLORIDE 0.9% 500 ML IV STA (14:05)
--- NOTE | 2017-03-10 14:13 | ED ---
Weakness HPI - General Chief complaint: Weakness Stated complaint: Weakness Time Seen by Provider: 03/10/17 13:56 Source: family, EMS Mode of arrival: EMS Limitations: altered mental status (Dementia versus delirium) - History of Present Illness Initial comments: Patient is a 76-year-old man who is brought to the emergency department with complaint of generalized weakness. The patient is not able to give much history , but he is denying pain anywhere, and he is denying dyspnea. The patient's and his [id number] are at the bedside and gives most of the history. they relate that he has not been taking much to eat or drink, and has been getting progressively weaker over the past approximately 2 weeks. He has not had any change in bowel movements they're aware of. They're not aware of having any fever. Patient denies significant cough. They state previously when he was like this he had pneumonia with some kidney issues as well. MD Complaint: generalized weakness, lack of energy Onset/Timin -: week(s) Location: generalized - Related Data Home Medications Medication Instructions Recorded Confirmed Aspirin EC [Ecotrin Low Dose] 81 mg PO HS 11/08/16 03/10/17 Folic Acid 1 mg PO DAILY 11/08/16 03/10/17 Furosemide [Lasix] 40 mg PO DAILY 11/08/16 03/10/17 Methotrexate Sodium [Methotrexate] 5 mg PO WE 11/08/16 03/10/17 Tamsulosin [Flomax] 0.4 mg PO DAILY 11/08/16 03/10/17 amLODIPine [Norvasc] 10 mg PO DAILY 11/08/16 03/10/17 Previous Rx's Medication Instructions Recorded Acetaminophen-Codeine 300-30mg 1 - 2 tab PO Q6H PRN #15 tab 11/11/16 [Tylenol w/codeine #3] Allergies Allergy/AdvReac Type Severity Reaction Status Date / Time No Known Allergies Allergy Verified 03/10/17 14:28 Review of Systems ROS Statement: Those systems with pertinent positive or pertinent negative responses have been documented in the HPI. ROS Other: All systems not noted in ROS Statement are negative. Limitations: ROS unobtainable due to patients medical condition (Dementia versus delirium) Constitutional: Denies: fever Respiratory: Denies: cough, dyspnea Cardiovascular: Denies: chest pain Gastrointestinal: Denies: abdominal pain, vomiting, diarrhea, constipation Musculoskeletal: Reports: back pain (Chronic) Neurological: Denies: headache Past Medical History Past Medical History: Chest Pain / Angina, COPD, CVA/TIA, Dementia, Hyperlipidemia, Hypertension, Osteoarthritis (OA), Pneumonia, Prostate Disorder , Renal Disease, Skin Disorder, Syncope Additional Past Medical History / Comment(s): Benign L lung mass removed surgically, psoriasis-takes methotrexate, early dementia, 2015 "brain bleed" with L sided weakness since resolved-was intubated and had a feeding tube, possible seizure in 2016, kidney "problems" but labwork is improving, back pain on occasion, past fractures L wrist and R hand fingers. History of Any Multi-Drug Resistant Organisms: None Reported Past Surgical History: Heart Catheterization, Hernia Repair, Tonsillectomy Additional Past Surgical History / Comment(s): Drainage tube for brain bleed- removed, L bening lung mass removed, R inguinal hernia removed, colonoscopy, cyst removed from tailbone. Past Anesthesia/Blood Transfusion Reactions: No Reported Reaction Past Psychological History: Depression Smoking Status: Former smoker Past Alcohol Use History: None Reported Past Drug Use History: None Reported - Past Family History Father Family Medical History: Cancer, Coronary Artery Disease (CAD) Additional Family Medical History / Comment(s): Father of cancer per his autopsy-unknown primary. He had CAD-CABG and was a drinker with liver dx. Mother Additional Family Medical History / Comment(s): Mother of a brain aneurysm at the age of 67 or 68yrs. General Exam Limitations: no limitations General appearance: alert, in no apparent distress Head exam: Present: atraumatic, normocephalic Eye exam: Present: normal appearance. Absent: scleral icterus, conjunctival injection ENT exam: Present: mucous membranes dry Respiratory exam: Present: normal lung sounds bilaterally. Absent: respiratory distress, wheezes, rales, rhonchi, stridor Cardiovascular Exam: Present: regular rate, normal rhythm, normal heart sounds. Absent: systolic murmur, diastolic murmur, rubs, gallop GI/Abdominal exam: Present: soft. Absent: distended, tenderness, guarding, rebound, rigid, mass Extremities exam: Present: normal inspection, normal capillary refill. Absent: pedal edema, calf tenderness Back exam: Present: normal inspection. Absent: CVA tenderness (R), CVA tenderness (L) Neurological exam: Present: alert, CN II-XII intact. Absent: oriented X3 ( Patient is oriented to person, recognizes he is in a health care facility, but cannot state the date.), motor sensory deficit Skin exam: Present: warm, dry, intact, normal color. Absent: rash Course Vital Signs 03/10/17 03/10/17 13:57 14:53 Temperature 97.8 F Pulse Rate 62 50 L Respiratory 18 18 Rate Blood Pressure 124/72 168/73 O2 Sat by Pulse 94 L 98 Oximetry Medical Decision Making - Medical Decision Making This patient is a 76-year-old man here with altered mental status. He is found to have urinary tract infection, and started on antibiotics. Case discussed with the patient's family and with the patient's physician Dr. Haider, and given the mental status changes will admit to ensure that he is improving with antibiotics. Patient also has borderline troponin, and this appears to be his baseline, probably related to the chronic renal failure. We will recheck this once to ensure that it is not rising. - Lab Data Result diagrams: 03/10/17 14:02 03/10/17 14:02 Lab Results 03/10/17 03/10/17 03/10/17 Range/Units 14:02 14:02 14:02 WBC 7.9 (3.8-10.6) k/uL RBC 4.38 (4.30-5.90) m/uL Hgb 12.7 L (13.0-17.5) gm/dL Hct 39.8 (39.0-53.0) % MCV 90.8 (80.0-100.0) fL MCH 28.9 (25.0-35.0) pg MCHC 31.8 (31.0-37.0) g/dL RDW 18.1 H (11.5-15.5) % Plt Count 107 L (150-450) k/uL Neutrophils % 69 % Lymphocytes % 22 % Monocytes % 6 % Eosinophils % 1 % Basophils % 0 % Neutrophils # 5.5 (1.3-7.7) k/uL Lymphocytes # 1.7 (1.0-4.8) k/uL Monocytes # 0.5 (0-1.0) k/uL Eosinophils # 0.1 (0-0.7) k/uL Basophils # 0.0 (0-0.2) k/uL Hypochromasia Slight Anisocytosis Slight PT (9.0-12.0) sec INR (<1.2) APTT (22.0-30.0) sec Sodium 145 (137-145) mmol/L Potassium 4.5 (3.5-5.1) mmol/L Chloride 110 H (98-107) mmol/L Carbon Dioxide 22 (22-30) mmol/L Anion Gap 13 mmol/L BUN 39 H (9-20) mg/dL Creatinine 2.19 H (0.66-1.25) mg/dL Est GFR (MDRD) Af Amer 36 (>60 ml/min/1.73 sqM) Est GFR (MDRD) Non-Af 30 (>60 ml/min/1.73 sqM) Glucose 86 (74-99) mg/dL Plasma Lactic Acid Sriram (0.7-2.0) mmol/L Calcium 9.4 (8.4-10.2) mg/dL Magnesium 1.9 (1.6-2.3) mg/dL Total Bilirubin 0.8 (0.2-1.3) mg/dL AST 19 (17-59) U/L ALT 23 (21-72) U/L Alkaline Phosphatase 69 (38-126) U/L Total Creatine Kinase 27 L (55-170) U/L CK-MB (CK-2) 0.5 (0.0-2.4) ng/mL CK-MB (CK-2) Rel Index 1.9 Troponin I 0.035 H* (0.000-0.034) ng/mL Total Protein 6.7 (6.3-8.2) g/dL Albumin 3.5 (3.5-5.0) g/dL Urine Color Urine Appearance (Clear) Urine pH (5.0-8.0) Ur Specific [place] (1.001-1.035) Urine Protein (Negative) Urine Glucose (UA) (Negative) Urine Ketones (Negative) Urine Blood (Negative) Urine Nitrite (Negative) Urine Bilirubin (Negative) Urine Urobilinogen (<2.0) mg/dL Ur Leukocyte Esterase (Negative) Urine RBC (0-5) /hpf Urine WBC (0-5) /hpf Ur Squamous Epith Cells (0-4) /hpf Urine Mucus (None) /hpf 01/11/18 01/11/18 01/11/18 Range/Units 14:02 14:02 15:05 WBC (3.8-10.6) k/uL RBC (4.30-5.90) m/uL Hgb (13.0-17.5) gm/dL Hct (39.0-53.0) % MCV (80.0-100.0) fL MCH (25.0-35.0) pg MCHC (31.0-37.0) g/dL RDW (11.5-15.5) % Plt Count (150-450) k/uL Neutrophils % % Lymphocytes % % Monocytes % % Eosinophils % % Basophils % % Neutrophils # (1.3-7.7) k/uL Lymphocytes # (1.0-4.8) k/uL Monocytes # (0-1.0) k/uL Eosinophils # (0-0.7) k/uL Basophils # (0-0.2) k/uL Hypochromasia Anisocytosis PT 10.4 (9.0-12.0) sec INR 1.1 (<1.2) APTT 24.7 (22.0-30.0) sec Sodium (137-145) mmol/L Potassium (3.5-5.1) mmol/L Chloride (98-107) mmol/L Carbon Dioxide (22-30) mmol/L Anion Gap mmol/L BUN (9-20) mg/dL Creatinine (0.66-1.25) mg/dL Est GFR (MDRD) Af Amer (>60 ml/min/1.73 sqM) Est GFR (MDRD) Non-Af (>60 ml/min/1.73 sqM) Glucose (74-99) mg/dL Plasma Lactic Acid Sriram 0.9 (0.7-2.0) mmol/L Calcium (8.4-10.2) mg/dL Magnesium (1.6-2.3) mg/dL Total Bilirubin (0.2-1.3) mg/dL AST (17-59) U/L ALT (21-72) U/L Alkaline Phosphatase (38-126) U/L Total Creatine Kinase (55-170) U/L CK-MB (CK-2) (0.0-2.4) ng/mL CK-MB (CK-2) Rel Index Troponin I (0.000-0.034) ng/mL Total Protein (6.3-8.2) g/dL Albumin (3.5-5.0) g/dL Urine Color Yellow Urine Appearance Turbid (Clear) Urine pH 8.0 (5.0-8.0) Ur Specific [place] 1.016 (1.001-1.035) Urine Protein 2+ H (Negative) Urine Glucose (UA) Negative (Negative) Urine Ketones 1+ H (Negative) Urine Blood Moderate H (Negative) Urine Nitrite Negative (Negative) Urine Bilirubin Negative (Negative) Urine Urobilinogen 2.0 (<2.0) mg/dL Ur Leukocyte Esterase Moderate H (Negative) Urine RBC 69 H (0-5) /hpf Urine WBC 32 H (0-5) /hpf Ur Squamous Epith Cells 1 (0-4) /hpf Urine Mucus Rare H (None) /hpf Disposition Clinical Impression: Chronic renal failure, Urinary tract infection, Altered mental status, Elevated troponin Disposition: ADMITTED IP TO THIS HOSP Condition: Fair Referrals: Jayme Haider MD [Primary Care Provider] - 1-2 days
[2017-03-10 14:23] LABS: Anisocytosis Slight; Basophils % (A) 0 %; Eosinophils # (A) 0.1 k/uL (0-0.7); Eosinophils % (A) 1 %; HCT 39.8 % (39.0-53.0); HGB 12.7 gm/dL (13.0-17.5); Hypochromasia Slight; Lymphocytes # (A) 1.7 k/uL (1.0-4.8); Lymphocytes % (A) 22 %; MCH 28.9 pg (25.0-35.0); MCHC 31.8 g/dL (31.0-37.0); MCV 90.8 fL (80.0-100.0); Mean Platelet Volume 9.1; Monocytes # (A) 0.5 k/uL (0-1.0); Monocytes % (A) 6 %; Neutrophils # (A) 5.5 k/uL (1.3-7.7); Neutrophils % (A) 69 %; Platelet Count 107 k/uL (150-450); RBC 4.38 m/uL (4.30-5.90); RDW 18.1 % (11.5-15.5); WBC 7.9 k/uL (3.8-10.6)
[2017-03-10 14:36] LABS: INR 1.1 (<1.2); Partial Thromboplastin Time 24.7 sec (22.0-30.0); Prothrombin Time 10.4 sec (9.0-12.0)
[2017-03-10 14:37] LABS: Albumin 3.5 g/dL (3.5-5.0); Calcium 9.4 mg/dL (8.4-10.2); Magnesium 1.9 mg/dL (1.6-2.3); Potassium 4.5 mmol/L (3.5-5.1); Total Bilirubin 0.8 mg/dL (0.2-1.3); Total Protein 6.7 g/dL (6.3-8.2)
--- NOTE | 2017-03-10 14:47 | CT ---
EXAMINATION TYPE: CT brain wo con DATE OF EXAM: 03/10/2017 COMPARISON: NONE HISTORY: Increased weakness and confusion. CT DLP: [address] of the brain was performed. The ventricles, basal cisterns and sulci overlying the cerebral convexities demonstrate moderate enla rgement. Bifrontal atrophy noted. There is no evidence for intracranial hemorrhage or sulcal effacement. There is confluent decreased attenuation about the periventricular white matter and deep white matter of both cerebral hemispheres, compatible with chronic small vessel ischemia. Differential diagnosis does include demyelination. No mass effects are seen.No midline shift. Osseous calvarium is intact. If symptoms persist consider MRI. IMPRESSION: 1. Age related atrophic and chronic small vessel ischemic change without acute intracranial process s een at this time.
--- NOTE | 2017-03-10 14:51 | XR ---
EXAMINATION TYPE: XR chest 1V portable DATE OF EXAM: 03/10/2017 HISTORY: Shortness of breath. COMPARISON: 11/09/2016 TECHNIQUE: Single view of the chest is submitted. FINDINGS: Demonstrated are scattered senescent parenchymal change. There is no evidence for focal infiltrate. The heart is enlarged. No evidence for congestive failure. Blunting left costophrenic angle may refle ct tiny pleural effusion versus pleural thickening. Hilar and mediastinal structures are within normal limits. Degenerative changes are seen of the dorsal spine. IMPRESSION: 1. No evidence for congestive failure. Blunting left costophrenic angle may reflect tiny pleural eff usion versus pleural thickening.
[2017-03-10 14:56] LABS: Creatine Kinase MB 0.5 ng/mL (0.0-2.4)
[2017-03-10 15:04] LABS: Troponin I 0.035 ng/mL (0.000-0.034)
[2017-03-10 15:14] LABS: Appearance,Urine Turbid (Clear); Bilirubin,Urine Negative (Negative); Blood,Urine Moderate (Negative); Color,Urine Yellow; Glucose,Urine (UA) Negative (Negative); Ketones,Urine 1+ (Negative); Leukocyte Esterase,Urine Moderate (Negative); Mucus,Urine Rare /hpf; Nitrite,Urine Negative (Negative); Protein,Urine 2+ (Negative); RBC,Urine 69 /hpf (0-5); Specific Gravity,Urine 1.016 (1.001-1.035); Squamous Epithelial Cell,Urine 1 /hpf (0-4); WBC,Urine 32 /hpf (0-5)
[2017-03-10] MEDS ORDERED: LEVOFLOXACIN 750MG-D5W PMX 750 MG in DEXTROSE/WATER 1 150ML.BAG IVPB STA (15:21)
[2017-03-10] MEDS ORDERED: SODIUM CHLORIDE 0.9% 1,000 ML IV ONE (15:36)
[2017-03-10] MEDS: ASPIRIN 81 MG PO SCH (22:10)
[2017-03-11] MEDS: amLODIPine 10 MG TAB PO SCH (06:48)
[2017-03-11] MEDS ORDERED: Acetaminophen-Codeine 300-30mg TAB PO PRN ×2 (07:55→07:58)
[2017-03-11] MEDS ORDERED: cloNIDine 0.3 MG/24HR PATCH 1 PATCH PATCH TRANSDERM SCH (08:00)
--- NOTE | 2017-03-11 08:23 | HP ---
HISTORY AND PHYSICAL CHIEF COMPLAINT: Weakness, generalized malaise with inability to rise from chair. This is a 76-year-old white male, well known to me with previous CVA that was brought in by his and his [id number] with progressive weakness, was not eating breakfast, could not get out of his chair by himself. At that time, he was brought in after not drinking or eating progressively worsening over a 2 week period of time. He came into the emergency room for evaluation and found to have moderately severe UTI. PAST MEDICAL HISTORY: His past medical history is for CVA, also BPH, hypertension moderately severe, long- standing COPD, with some progressive dementia with his CVA and severe osteoarthritis. He basically lives with his and uses a cane to ambulate. He also wears about 2 L of oxygen on a daily basis. He has also had a long-standing history of psoriasis and psoriatic arthritis. He has had syncope before. Back 8 years ago, this gentleman had a left lung mass which was removed surgically, thought to be cancerous ended up to be surprisingly benign. He has had a problem with progressive renal disease since his CVA, felt to be hypertensive in nature. PAST SURGICAL HISTORY: His past surgical history is that of cardiac catheterization, inguinal hernia repair and tonsillectomy. He did have a bleed in his brain was removed in 2014, colonoscopy and multiple cysts removal on his tailbone. FAMILY HISTORY: There is cancer and coronary artery disease. His father of cancer per autopsy, they never did find the primary. He had CAD, CABG. Additional family history is his mother of an aneurysm at the age of 67. MEDICATIONS: Home medications include: 1. Aspirin 81 daily. 2. Folic acid 1 daily. 3. Lasix 40 daily. 4. Methotrexate 5 mg weekly. 5. Amlodipine 10 mg a day. 6. Flomax 0.4 mg a day. He has had previous reactions to no medications and he at one time was taking codeine for post CVA pain. REVIEW OF SYSTEMS: The patient is a poor historian, so some of this information is coming from his too. EYES: He does have problems seeing. He does have cataracts. ENT: He does always complain about dry mouth and difficult talking today, but with slow articulation and the patient does have slow articulation to begin with. CHEST: He says he has not been coughing, but he wheezes a fair amount. He also uses an [email or web address] machine up to 4 times a day. HEART: He denies questions of chest pain, palpitations. Has had shortness of breath progressively with activity. Does have a 1 pillow orthopnea. No proximal nocturnal dyspnea. NEUROMUSCULAR: He just had psoriasis in his hands and his wrists and also on the back of his elbows and occasionally on the scalp, which has responded according to Rheumatology to methotrexate. Methotrexate dose to be re-corrected to 7.5 daily. SKIN: Just the psoriatic changes on his lower legs, which are stable at this period of time. ALLERGY: Patient has chronic sinus, post nasal drip. PHYSICAL EXAM: Vital signs at this time is a blood pressure of 136/96, heart rate is in the 70s, temperature is 97.1, and respiratory rate is 20. EYES: Pupils are equal, round, react to light and accommodation. ENT: Shows tympanic membranes and pharynx to be negative. NECK: Supple with a midline trachea. Chest has rhonchi bilaterally. He is wearing 3 L of O2 by nasal cannula. ENT is within normal limits. Heart is sinus rhythm with no murmur. ABDOMEN: Soft, nontender with no organomegaly. Negative Nuñez's sign. Negative Ham sign. Lower extremities has decreased pulses bilaterally. SKIN: He has evidence of psoriasis on his knees and hands, mostly low-grade scarring. JOINTS: The arthritis deformity of the wrist and hand are typical of psoriatic changes. VASCULAR: Decreased pulses bilaterally. He has clubbing in the fingers. PSYCHIATRIC: Hard to ascertain at this period of time. Chest x-ray was completed, which showed no evidence of pneumonia and no evidence of CHF. CT scan of the brain was completed which showed age-related atrophy and chronic vessel disease but absolutely no acute process. Urine on laboratory was packed with WBCs. He had a troponin, his first one was 0.035. His second one is 0.038. So at this point, barely above normal. His creatinine is 2.1, BUN is 39. Hemoglobin 12.7 and 7.9 WBC count. Potassium also stable at 5.4. ASSESSMENT: 1. Probable urinary tract infection with urosepsis. 2. Long-standing hypertension. 3. Cerebrovascular accident with some progressive dementia. 4. Some progressive renal failure with a baseline creatinine of right around 2.1. His GFR is right around 36 and with his BUN 39 evidence of dehydration. 5. Previous history of chronic obstructive pulmonary disease with exacerbation. PLAN: Will continue with IV antibiotics at this time. Urine cultures have been completed. IV fluids have been started. Prophylactic care is to be continued with both GI and DVT prophylaxis. Please refer to my orders. MMODL / IJN: [id number] /
[2017-03-11] MEDS: TAMSULOSIN 0.4 MG CAP.ER.24H PO SCH (09:53)
[2017-03-11] MEDS: FOLIC ACID 1 MG TAB PO SCH (09:54)
[2017-03-11] MEDS: SODIUM CHLORIDE 0.9% 1,000 ML IV SCH ×3 (09:55→21:32)
[2017-03-11] MEDS ORDERED: LEVOFLOXACIN 750 MG TAB PO SCH ×2 (15:00→18:00)
[2017-03-11] MEDS: ASPIRIN 81 MG PO SCH (21:28)
[2017-03-12 06:05] LABS: Anisocytosis Slight; HCT 41.9 % (39.0-53.0); HGB 13.3 gm/dL (13.0-17.5); Hypochromasia Moderate; MCH 29.8 pg (25.0-35.0); MCHC 31.7 g/dL (31.0-37.0); Mean Platelet Volume 8.8; Platelet Count 100 k/uL (150-450); RBC 4.46 m/uL (4.30-5.90); RDW 16.6 % (11.5-15.5); WBC 8.4 k/uL (3.8-10.6)
[2017-03-12 06:51] LABS: Band Neutrophils % 1 %; Eosinophils # (M) 0.17 k/uL (0-0.7); Lymphocytes # (M) 2.52 k/uL (1.0-4.8); Monocytes # (M) 0.59 k/uL (0-1.0); Neutrophils % (M) 60 %; Nucleated Red Blood Cells 0 /100 WBC (0-0); Total Cells Counted 100
[2017-03-12 07:36] LABS: Calcium 8.9 mg/dL (8.4-10.2)
[2017-03-12] MEDS: amLODIPine 10 MG TAB PO SCH (09:06)
[2017-03-12] MEDS: FOLIC ACID 1 MG TAB PO SCH (09:10)
[2017-03-12] MEDS: TAMSULOSIN 0.4 MG CAP.ER.24H PO SCH (09:10)
[2017-03-12] MEDS ORDERED: ALBUTEROL NEBULIZED 2.5 MG/3 ML INHALATION PRN (09:25)
--- NOTE | 2017-03-12 10:33 | PN ---
PROGRESS NOTE HISTORY OF PRESENT ILLNESS: The patient is much more alert today, well orientated to person, place, and thing. He states he is not as weak. This is a 76-year-old white male who has been well known to me with previous CVA, who was brought into the emergency room with progressive weakness, not eating breakfast and had very hard time even getting out of the chair. Because of this progressing over 2-week period time, they called the office and stated they could not get him even into a car, so he was brought to the emergency room. He was brought there, found to have a moderate to severe urinary tract infection, which is probable with early sepsis. He was placed in the hospital accordingly. PAST HISTORY: CVA, BPH, hypertension, moderately severe COPD from long time previous cigarette smoking, and some progressive dementia especially post CVA. He has also has some severe arthritis. He basically sits in a wheelchair. His and daughter help him in an out on a daily basis. He can walk occasionally a few steps with the use of a cane. He wears 2 L of oxygen on a regular basis. He has long-standing history of psoriasis and psoriatic arthritis. He has had multiple episodes of syncope. Eight years ago this gentleman had a left lung mass which we presumed by CT scan and x-rays that this was probably cancerous. Surprisingly was a benign fungal lesion. He has had a problem with progressive renal disease since his CVA, felt to be a long standing hypertensive in nature. PAST SURGICAL HISTORY: He had a cardiac catheterization previously. He has had inguinal hernia repair and tonsillectomy. He did have a brain bleed that caused CVA, probably related with hypertension, that responded well to evacuation. His colonoscopy has been up to date. He has had multiple cysts. SOCIAL HISTORY: Lives with his . He is nonsmoker, but did smoke for +50 years, 1 to 2 packs a day. 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 He has never been an alcohol drinker. FAMILY HISTORY: That of his dad of cancer on autopsy, but they never knew where the primary harper. He also had coronary artery disease and CABG. Mother of an aneurysm at the age of 67. MEDICATIONS: 1. Aspirin 81 daily. 2. Folic acid 1 daily. 3. Lasix 40 daily. 4. Methotrexate 7.5 daily. 5. Amlodipine 10 mg daily. 6. Flomax 0.4 daily. 7. Catapres patch TSS every 7 days. 8. Levaquin 750 mg every 48 hours. 9. Norvasc 10 mg daily. 10.Codeine #3 two every 6 hours p.r.n. pain for back. He has got a history of chronic lumbar stenosis and degenerative disc disease. LABS: Today, shows a hemoglobin of 13.3 with a 8.4 WBC. Moderate hypochromasia. Platelet count of 100,000. Microbiology shows a Gram-negative bacilli, nondiagnostic at this time, await the results. REVIEW OF SYSTEMS: The patient has had a CVA, his communication is basically yes and no answers. Eyes, he is not having problems seeing he says. ENT, no problems with his mouth. Chest, he said he has been coughing from respiratory. He said he has had no shortness of breath. Heart, he says no palpitations. No chest pain. GI, no hematemesis, melena, hematochezia. No diarrhea. He has not been constipated. Stated he did have a bowel movement yesterday. No problems with urinary, no problems with urination. Musculoskeletal, just bad back pain. Also talked about the arthritis in his hands. Psychiatric, the patient is not depressed and not anxious at this time. PHYSICAL EXAMINATION: Reveals an alert white male, much improved from last p.m. with a blood pressure of 160/81, temperature 96 with a heart rate of 60 and respiratory rate of 20. He is on 2 L of oxygen by nasal cannula, maintaining O2 at 97. EYES: Pupils are equal, round, react to light accommodation. ENT: Very dry mouth. Facial hair includes that of a hartman. NECK: Supple. Minimal carotid bruits bilaterally. His carotid arteries have been checked and they were within 40% to 50% blockage bilaterally. CHEST: He does have minimal amount of rhonchi. Minimal wheezing. HEART: Sinus rhythm with no murmur. ABDOMEN: Soft, nontender with no organomegaly. EXTREMITIES: Lower extremities, he does have some swelling and decreased pulses. He has got clubbing of the fingers bilaterally. Some stasis dermatitis changes on his lower legs. He also has psoriasis changes on his hands and elbows, but nothing on his scalp at this time. Maintained with methotrexate. ASSESSMENT: 1. Urinary tract infection, Gram-negative. 2. Long-standing hypertension. 3. Cerebrovascular accident with previous extracranial bleed due to CVA. 4. Progressive renal failure with a baseline of right around 2.1. 5. History of severe chronic obstructive pulmonary disease and some progressive dementia. 6. Pain control. PLAN: I am continuing his IV antibiotics, IV fluid, and we will make sure he is taking his updrafts 4 times a day. MMODL / IJN: [id number] /
[2017-03-12] MEDS: SODIUM CHLORIDE 0.9% 1,000 ML IV SCH (17:04)
[2017-03-12] MEDS: ASPIRIN 81 MG PO SCH (20:08)
[2017-03-13] MEDS: SODIUM CHLORIDE 0.9% 1,000 ML IV SCH ×3 (05:26→23:16)
[2017-03-13] MEDS: TAMSULOSIN 0.4 MG CAP.ER.24H PO SCH (08:21)
[2017-03-13] MEDS: amLODIPine 10 MG TAB PO SCH (08:21)
[2017-03-13] MEDS: FOLIC ACID 1 MG TAB PO SCH (08:22)
[2017-03-13] MEDS: cefTRIAXone IN SWFI 1,000 MG/10 ML SYRINGE IVP SCH (11:28)
[2017-03-13] MEDS: LOSARTAN-HCTZ 50-12.5 MG 1 EACH TAB PO SCH (11:29)
--- NOTE | 2017-03-13 12:22 | PN ---
PROGRESS NOTE Patient appears quite the same. No more alertness, but he is well orientated to person, place, and thing. Appears still very tired and nursing says that he is sleepy most of the day. His present illness is that persons who are usually are alert, well oriented to person, place, and thing, but he has had problems with articulation especially timing. It is known due to a CVA which has caused severe weakness. Unfortunately, he has now stopped eating. Very hard time getting off of his chair. He would not take his medications. Was brought to the emergency room and found to have a urinary tract infection. At this period of time, his urinary tract infection is coming back Proteus with intermediate response to the Rocephin. Past medical history he has had a CVA, BPH, hypertension, moderately severe COPD from fpc previous cigarette smoking, and some progressive dementia from the CVA. He has also has severe arthritis, especially lumbar stenosis basically sits in a wheelchair all day. His daughter and pretty much attend his care. He can walk a few steps, can get on the scale. He wears 2 L of oxygen on a regular basis by nasal cannula for severe COPD. He has a long-standing history of psoriasis and severe psoriatic arthritis. He has had episodes of syncope in the past. Eight years ago this gentleman had a large left lung mass. 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 A wedge resection was planned completed and much to our surprise this was a large benign fungal lesion. He has had progressive renal failure since his CVA, felt to be longstanding in nature. PAST MEDICAL HISTORY: SURGICAL HISTORY: That of cardiac catheterization. He has had inguinal hernia repair, tonsillectomy, brain bleed, some subarachnoid bleed, with evacuation at [facility], related to hypertension. He has not been the same mentally since that period of time. His colonoscopy is normal in the past. SOCIAL HISTORY: Lives with his . He is a nonsmoker, but did smoke for 50+ years, 1-2 packs a day. He was a master tradesmen and worked for many years. He is not an alcohol drinker. FAMILY HISTORY: Dad of cancer, on autopsy, they never found the primary. He also had coronary artery disease and CABG. Mother of an aneurysm at the age of 67. MEDICATIONS: Now are aspirin 81, folic acid 1 mg a day, Lasix 40, methotrexate 7.5 and Amlodipine 10, Flomax 0.4, Catapres patch TSS-3 daily, Levaquin 750, 48 hours, Norvasc 10, codeine #3 as needed for pain. Labs today are no change other than a diagnosis now of Proteus mirabilis. REVIEW OF SYSTEMS: The patient has had CVAs, communication skills are poor with no problems with eyes. ENT have no problem with his mouth. Chest harper, no shortness of breath, except for a cough. Heart no palpitations. No chest pain. GI no hematemesis, melena, hematochezia, just constipation. Urination: He has a history of BPH. He has not had any problem urinating. Musculoskeletal: Just the severe back pain from lumbar stenosis and he has psoriatic arthritis in his hands. Psychiatric: He is not depressed, not anxious. Just slow with communication. PHYSICAL EXAMINATION: Today, alert, white male, well orientated to person, place, and thing and well responsive to questioning today. Today, his blood pressure is 155/73, his temperature is 97.8, heart rate is 71, respirations are 16. Eyes: Pupils are equal, round, reactive to light and accommodation. ENT showed tympanic membranes and pharynx to be negative. NECK: Supple with midline trachea. Chest essentially clear to auscultation. Heart: Sinus rhythm with no murmur. Negative S3. Negative S4. ABDOMEN: Soft, nontender with no organomegaly. Urinary: He has been able to urinate. Skin examination was deferred. Musculoskeletal: He is weak, sitting up. He has got pain today and swelling in his hands and his wrists, psoriatic changes in his lower legs, especially his knees are seen. Skin: He has psoriasis changes on his elbows and his hands and lower legs and knees. Vascular: He has got femoral pulses, decreased posterior tibialis pulses. ASSESSMENT: 1. Proteus mirabilis urinary tract infection, possible sepsis related. 2. Cerebrovascular accident with dementia since. 3. Longstanding hypertension of which we added losartan /.5. 4. Chronic obstructive pulmonary disease long-standing with updrafts. 5. Benign prostatic hypertrophy. 6. Progressive dementia. PLAN: We switched his antibiotic from Levaquin over to Rocephin 1 g every 24 hours. We also placed him on the losartan-hydrochlorothiazide for his blood pressure. Continue the same with the possibility of discharge in the a.m. MMDAIJA / CHAUNCEYN: [id number] /
[2017-03-13] MEDS: ASPIRIN 81 MG PO SCH (20:12)
[2017-03-14] MEDS: SODIUM CHLORIDE 0.9% 1,000 ML IV SCH (06:41)
[2017-03-14 07:09] LABS: Anisocytosis Slight; HCT 37.3 % (39.0-53.0); HGB 11.7 gm/dL (13.0-17.5); Hypochromasia Moderate; MCHC 31.4 g/dL (31.0-37.0); MCV 92.2 fL (80.0-100.0); Mean Platelet Volume 9.3; Platelet Count 143 k/uL (150-450); RBC 4.04 m/uL (4.30-5.90); RDW 17.7 % (11.5-15.5); WBC 5.7 k/uL (3.8-10.6)
[2017-03-14 07:33] LABS: Calcium 8.5 mg/dL (8.4-10.2); Potassium 3.6 mmol/L (3.5-5.1)
[2017-03-14] MEDS: LOSARTAN-HCTZ 50-12.5 MG 1 EACH TAB PO SCH (08:16)
[2017-03-14] MEDS: TAMSULOSIN 0.4 MG CAP.ER.24H PO SCH (08:16)
[2017-03-14] MEDS: cefTRIAXone IN SWFI 1,000 MG/10 ML SYRINGE IVP SCH (08:16)
[2017-03-14] MEDS: FOLIC ACID 1 MG TAB PO SCH (08:16)
[2017-03-14] MEDS: amLODIPine 10 MG TAB PO SCH (08:16)
[2017-03-14] MEDS: ASPIRIN 81 MG PO SCH (08:16)
[2017-03-14 08:23] LABS: Lymphocytes # (M) 2.11 k/uL (1.0-4.8); Monocytes # (M) 0.46 k/uL (0-1.0); Neutrophils # (M) 2.74 k/uL (1.3-7.7); Neutrophils % (M) 48 %; Nucleated Red Blood Cells 0 /100 WBC (0-0); Total Cells Counted 100
[2017-03-14 08:24] LABS: Poikilocytosis (M) Present
--- NOTE | 2017-03-14 09:44 | P.DS ---
Providers Date of admission: 03/10/17 15:36 Expected date of discharge: 03/14/17 Attending physician: Jayme Haider Primary care physician: Jayme Haider [facility] Course: 76-year-old male who was brought to the emergency room by his and daughter in law with progressive weakness, was not eating breakfast, could not get out of the chair by himself. At that time, he was brought in after not drinking or eating progressively worsening over a two week period of time. He came into the emergency room for evaluation and was found to have a moderately severe urinary tract infection. The patient has a history of cerebrovascular accident, BPH, hypertension, moderately severe COPD from long-term previous cigarette smoking, and some progressive dementia from the CVA. He also has severe arthritis especially lumbar stenosis and basically sits in a wheelchair all day. His and daughter care for him. He wears 2 L of oxygen on a regular basis by nasal cannula for severe COPD. He has has a history of psoriasis and severe psoriatic arthritis. He received IV antibiotics during hospitalization and his condition improved back to patient's baseline. His urinary culture was positive for Proteus mirabilis and he was switched from Levaquin to Rocephin. He is to be discharged home on Ceftin 500 mg twice a day for 8 additional days. He was also started on losartan hydrochlorothiazide and Catapres patches for his blood pressure. The patient's family is requesting subacute rehab at the time of discharge. The patient was deemed stable for discharge per Dr. Haider. He is to follow up on an outpatient basis after discharge from [facility]. Discharge diagnosis Proteus mirabilis urinary tract infection, present on admission, improving at time of discharge Sepsis, secondary to urinary tract infection, resolved at the time of discharge History of Cerebrovascular accident Essential hypertension Chronic obstructive pulmonary disease Benign prostatic hypertrophy Progressive dementia Nurse practitioner note has been reviewed by physician. Signing provider agrees with the documented findings, assessment, and plan of care. Patient Condition at Discharge: Fair Plan - Discharge Summary Discharge Rx Participant: No New Discharge Prescriptions: New Cefuroxime Axetil [Ceftin] 500 mg PO BID #16 tab cloNIDine 0.3 MG/24HR PATCH [Catapres-TTS] 1 patch TRANSDERM Q7D #4 patch Losartan-Hctz 50-12.5 mg [Hyzaar 50-12.5] 1 each PO DAILY #30 tab Continue amLODIPine [Norvasc] 10 mg PO DAILY Tamsulosin [Flomax] 0.4 mg PO DAILY Methotrexate Sodium [Methotrexate] 5 mg PO WE Folic Acid 1 mg PO DAILY Aspirin EC [Ecotrin Low Dose] 81 mg PO HS Furosemide [Lasix] 40 mg PO DAILY Acetaminophen-Codeine 300-30mg [Tylenol w/codeine #3] 1 - 2 tab PO Q6H PRN # 15 tab PRN Reason: Pain Discharge Medication List Aspirin EC [Ecotrin Low Dose] 81 mg PO HS 11/08/16 [History] Folic Acid 1 mg PO DAILY 11/08/16 [History] Furosemide [Lasix] 40 mg PO DAILY 11/08/16 [History] Methotrexate Sodium [Methotrexate] 5 mg PO WE 11/08/16 [History] Tamsulosin [Flomax] 0.4 mg PO DAILY 11/08/16 [History] amLODIPine [Norvasc] 10 mg PO DAILY 11/08/16 [History] Acetaminophen-Codeine 300-30mg [Tylenol w/codeine #3] 1 - 2 tab PO Q6H PRN #15 tab 11/11/16 [Rx] Cefuroxime Axetil [Ceftin] 500 mg PO BID #16 tab 03/14/17 [Rx] Losartan-Hctz 50-12.5 mg [Hyzaar 50-12.5] 1 each PO DAILY #30 tab 03/14/17 [Rx] cloNIDine 0.3 MG/24HR PATCH [Catapres-TTS] 1 patch TRANSDERM Q7D #4 patch [Rx] Follow up Appointment(s)/Referral(s): Jayme Haider MD [Primary Care Provider] - 1 Week (1 week after DC from rehab ) Patient Instructions/Handouts: Urinary Tract Infection in Men (DC), Altered Mental Status (GEN) Activity/Diet/Wound Care/Special Instructions: Activity as tolerated Regular Diet Discharge Disposition: TRANSFER TO SNF/ECF
[2017-03-14 13:25] VITALS: BMI 21.9
[2017-03-15] MEDS: SODIUM CHLORIDE 0.9% 1,000 ML IV SCH ×2 (07:06→11:07)
[2017-03-15] MEDS: LOSARTAN-HCTZ 50-12.5 MG 1 EACH TAB PO SCH (08:38)
[2017-03-15] MEDS: amLODIPine 10 MG TAB PO SCH (08:38)
[2017-03-15] MEDS: TAMSULOSIN 0.4 MG CAP.ER.24H PO SCH (08:38)
[2017-03-15] MEDS: cefTRIAXone IN SWFI 1,000 MG/10 ML SYRINGE IVP SCH (08:38)
[2017-03-15 09:57] VITALS: BP 148/79; RESP 14; TEMP 97.7
--- NOTE | 2017-03-15 10:11 | P.PN ---
Progress Note - Text Progress Note Date: 03/15/17 Patient seen and examined at the bedside on rounds with Dr. Haiedr. The patient was cleared for discharge yesterday. Discharge planning includes discharge to [facility]. Discharge was delayed yesterday secondary to awaiting insurance authorization. Patient remains stable. Denies concerns or complaints. Anticipate discharge today to [facility] pending insurance auth. Nurse practitioner note has been reviewed by physician. Signing provider agrees with the documented findings, assessment, and plan of care.
[2017-03-15] MEDS: FOLIC ACID 1 MG TAB PO SCH (12:08)
[2017-03-15 14:49] VITALS: PULSE 65
[2017-03-16] MEDS ORDERED: METHOTREXATE SODIUM 2.5 MG TAB PO SCH (09:00)
--- NOTE | 2017-03-17 07:48 | CDI ---
Last Revision, January 2017 Documentation Clarification Form Date: 03/17/2017 7:34:00 AM From: Marta Abarca Phone: If you have a question regarding this query, please contact Lilly Lama [employer]visor [employer] at [phone] between 8am and 5pm. Admit Date: 03/10/2017 3:36:00 PM Patient Name: Tejas Ibarra Visit Number: [id number] Discharge Date: ATTENTION: The Clinical Documentation Specialists (CDI) and [facility] Coding Staff appreciate your assistance in clarifying documentation. Please respond to the clarification below the line at the bottom and electronically sign. The CDI & [facility] Coding staff will review the response and follow-up if needed. Please note: Queries are made part of the Legal Health Record. If you have any questions, please contact the author of this message via ITS. Dr. Jayme Haider History/Risk Factors: Renal failure is documented throughout the chart. The patient has a history of hypertension. Current BUN/CR/GFR: 2.19 Patients Baseline: BUN: 2.1 Patients medications include: Lasix daily. IVF: Sodium Chloride 500 @ 999 mls/hr then 1000 mls @100 mls/hr In order to capture the severity of condition, please clarify if the condition signifies: CKD Stage 1 (GFR > 90) CKD Stage 2 (GFR 60-89) CKD Stage 3 (GFR 30-59) CKD Stage 4 (GFR 15-29) CKD Stage 5 (GFR <15) ESRD Other, please specify _stage 4 CKD Unable to determine Please continue to document in your progress notes and discharge summary in order to capture severity of illness and risk of mortality. Include clinical findings that support your diagnosis. MTDD
== END 2017-03-15 18:15 | disposition home or self-care (01) | DRG 872 ==
LOC: EC 13:53 → 6SEL 15:36
PROVIDERS: ADMIT Family Medicine; ATTEND Family Medicine
DX: A41.50 Gram-negative sepsis, unspecified (principal); N18.4 Chronic kidney disease, stage 4 (severe); I69.198 Other sequelae of nontraumatic intracerebral hemorrhage; F02.80 Dementia in other diseases classified elsewhere, unspecified severity, without behavioral disturbance, psychotic disturbance, mood disturbance, and anxiety; L40.50 Arthropathic psoriasis, unspecified; N39.0 Urinary tract infection, site not specified; E86.0 Dehydration; E78.5 Hyperlipidemia, unspecified; B96.4 Proteus (mirabilis) (morganii) as the cause of diseases classified elsewhere; I12.9 Hypertensive chronic kidney disease with stage 1 through stage 4 chronic kidney disease, or unspecified chronic kidney disease; J44.9 Chronic obstructive pulmonary disease, unspecified; M19.90 Unspecified osteoarthritis, unspecified site; M48.061 Spinal stenosis, lumbar region without neurogenic claudication; N40.0 Benign prostatic hyperplasia without lower urinary tract symptoms; F32.9 Major depressive disorder, single episode, unspecified; R74.8 Abnormal levels of other serum enzymes; Z79.82 Long term (current) use of aspirin; Z79.899 Other long term (current) drug therapy; Z87.891 Personal history of nicotine dependence; Z82.49 Family history of ischemic heart disease and other diseases of the circulatory system
CPT/HCPCS: 36415; 70450; 71045; 80048; 80053; 81001; 82550; 82553; 83605; 83735; 84484; 85025; 85610; 85730; 87040; 87077; 87086; 87186; 93005; 94760; 96361; 96365; 99285